=== PATIENT | male | born 1965 | race Caucasian/White ===

== ENCOUNTER 2017-06-07 12:34 | Emergency (ER) | payer OTHER ==
[~2017-06-07] VITALS: Ht 182.9 cm; Wt 102.0 kg
[2017-06-07 13:04] VITALS: BP 142/78; PULSE 97; RESP 18; TEMP 98.9; O2SAT 97
[2017-06-07 13:42] LABS: AUTOMATED NEUTROPHIL # 6.7 TH/MM3 (1.8-7.7); BASOPHIL # 0.1 TH/MM3 (0-0.2); BASOPHIL % 0.5 % (0.0-2.0); HEMATOCRIT 43.1 % (39.0-51.0); HEMOGLOBIN 14.8 GM/DL (13.0-17.0); LYMPH % 23.3 % (9.0-44.0); LYMPHOCYTE # 2.2 TH/MM3 (1.0-4.8); MEAN CELL VOLUME 87.8 FL (80.0-100.0); MEAN CORPUSCULAR HEMOGLOBIN 30.2 PG (27.0-34.0); MEAN CORPUSCULAR HGB CONC 34.4 % (32.0-36.0); MEAN PLATELET VOLUME 6.9 FL (7.0-11.0); MONO % 5.9 % (0.0-8.0); MONOCYTE # 0.6 TH/MM3 (0-0.9); NEUT % 70.3 % (16.0-70.0); PLATELET COUNT 335 TH/MM3 (150-450); RED BLOOD COUNT 4.91 MIL/MM3 (4.50-5.90); RED CELL DISTRIBUTION WIDTH 14.1 % (11.6-17.2); WHITE BLOOD COUNT 9.6 TH/MM3 (4.0-11.0)
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
[2017-06-07 13:51] LABS: PROTHROMBIN TIME - PATIENT 10.4 SEC (9.8-11.6)
[2017-06-07 14:01] LABS: ALBUMIN 4.3 GM/DL (3.4-5.0); ALT (GPT) 25 U/L (12-78); AST (GOT) 16 U/L (15-37); BICARBONATE 25.5 MEQ/L (21.0-32.0); BLOOD UREA NITROGEN 6 MG/DL (7-18); CALCIUM 9.3 MG/DL (8.5-10.1); CHLORIDE 106 MEQ/L (98-107); CREATININE 0.82 MG/DL (0.60-1.30); GLOMERULAR FILTRATION RATE 99 ML/MIN (>89); GLUCOSE,RANDOM 112 MG/DL (74-106); MAGNESIUM 2.1 MG/DL (1.5-2.5); SODIUM (NA) 140 MEQ/L (136-145)
[2017-06-07 14:11] LABS: ALKALINE PHOSPHATASE 55 U/L (45-117); TOTAL BILIRUBIN ADULT 0.5 MG/DL (0.2-1.0); TOTAL PROTEIN 7.5 GM/DL (6.4-8.2); TROPONIN I LESS THAN 0.02 NG/ML (0.02-0.05)
--- NOTE | 2017-06-07 14:11 | RADRPT ---
EXAM DATE/TIME: 06/07/2017 13:47 [facility] COMPARISON: No previous studies available for comparison. INDICATIONS : Chest Pain MEDICAL HISTORY : Myocardial infarction. SURGICAL HISTORY : Cardiac stents, Heart Cath ENCOUNTER: Initial ACUITY: 1 day PAIN SCORE: 0/10 LOCATION: chest FINDINGS: PA and lateral views of the chest demonstrate the lungs to be symmetrically aerated without evidence of mass, infiltrate or effusion. The cardiomediastinal contours are unremarkable. Osseous structure s are intact. CONCLUSION: No acute disease. Reddy Singh MD on June 07, 2017 at 14:08 Board Certified Radiologist. This report was verified electronically.
[2017-06-07] MEDS ORDERED: AMLO5TAB2 PO (18:17)
[2017-06-07] MEDS ORDERED: ATEN25TA PO (18:17)
[2017-06-07] MEDS ORDERED: CEPH500C PO (18:18)
[2017-06-07] MEDS ORDERED: VITA100018 PO (18:19)
[2017-06-07] MEDS ORDERED: CLOP75TA PO (18:20)
[2017-06-07] MEDS ORDERED: LACTTAB8 PO (18:20)
[2017-06-07] MEDS ORDERED: RANI150T PO (18:21)
[2017-06-07] MEDS ORDERED: SERT-129 PO (18:21)
[2017-06-07] MEDS ORDERED: LISI40TA PO (18:21)
[2017-06-07] MEDS ORDERED: NITR1SUB3 SL (18:23)
[2017-06-07] MEDS ORDERED: ASPI81TA23 PO (18:23)
[2017-06-07] MEDS ORDERED: ROSU1TAB10 PO (18:24)
[2017-06-07 18:40] VITALS: BP 177/96; PULSE 100; RESP 18; O2SAT 96
[2017-06-07] MEDS ORDERED: NITROGLYCERIN 0.4 MG SL 25 TABS/BTL SL ONE (19:15)
[2017-06-07] MEDS ORDERED: IBUPROFEN 600 MG TAB PO ONE (19:45)
[2017-06-07] MEDS ORDERED: SERTRALINE HCL 100 MG TAB PO ONE (20:00)
[2017-06-07] MEDS ORDERED: ATENOLOL 25 MG TAB PO ONE (20:00)
[2017-06-07] MEDS ORDERED: amLODIPine BESYLATE 5 MG TAB PO ONE (20:00)
[2017-06-07] MEDS ORDERED: LISINOPRIL 20 MG TAB PO SCH (20:00)
--- NOTE | 2017-06-07 23:58 | EKG ---
Date Performed: 06/07/2017 Time Performed: 12:58:30 PTAGE: 52 years EKG: Sinus rhythm NORMAL ECG WARNING: DATA QUALITY MAY AFFECT INTERPRETATION NO PREVIOUS TRACING DOCTOR: Mirian Blood Interpretating Date/Time 06/07/2017 23:56:23
[2017-06-08 02:17] VITALS: BP 149/86; PULSE 70; RESP 19; O2SAT 98
--- NOTE | 2017-06-08 09:35 | PD ---
Physical Exam Time Seen by Provider: 09:[address] Bowers has evaluated patient, lifted Coates act and cleared the patient for discharge. Data Data Last Documented VS Vital Signs Date Time Temp Pulse Resp B/P (MAP) Pulse Ox O2 Delivery O2 Flow Rate FiO2 06/08/17 02:17 70 19 149/86 (107) 98 Room Air 06/07/17 13:04 98.9 Orders Orders Electrocardiogram (06/07/17 13:00) Ckmb (Isoenzyme) Profile (06/07/17 13:00) Complete Blood Count With Diff (06/07/17 13:00) Comprehensive Metabolic Panel (06/07/17 13:00) Magnesium (Mg) (06/07/17 13:00) Prothrombin Time / Inr (Pt) (06/07/17 13:00) Act Partial Throm Time (Ptt) (06/07/17 13:00) Troponin I (06/07/17 13:00) Iv Access Insert/Monitor (06/07/17 13:00) Chest, Pa & Lat (06/07/17 13:00) Thyroid Stimulating Hormone (06/07/17 13:00) Drug Screen, Random Urine (06/07/17 13:00) Alcohol (Ethanol) (06/07/17 13:00) Psych Screen (06/07/17 13:00) CKMB (06/07/17 13:12) CKMB% (06/07/17 13:12) Diet Regular Basic (06/07/17 Dinner) Troponin I (06/07/17 18:35) Electrocardiogram (06/07/17 ) Nitroglycerin Sl (Nitrostat Sl) (06/07/17 19:15) Ibuprofen (Motrin) (06/07/17 19:45) Amlodipine (Norvasc) (06/07/17 20:00) Atenolol (Tenormin) (06/07/17 20:00) Lisinopril (Prinivil) (06/07/17 20:00) Sertraline (Zoloft) (06/07/17 20:00) Diet Regular Basic (06/08/17 Breakfast) Labs Laboratory Tests Test 06/07/17 13:12 06/07/17 15:40 06/07/17 19:26 White Blood Count 9.6 TH/MM3 Red Blood Count 4.91 MIL/MM3 Hemoglobin 14.8 GM/DL Hematocrit 43.1 % Mean Corpuscular Volume 87.8 FL Mean Corpuscular Hemoglobin 30.2 PG Mean Corpuscular Hemoglobin Concent 34.4 % Red Cell Distribution Width 14.1 % Platelet Count 335 TH/MM3 Mean Platelet Volume 6.9 FL Neutrophils (%) (Auto) 70.3 % Lymphocytes (%) (Auto) 23.3 % Monocytes (%) (Auto) 5.9 % Eosinophils (%) (Auto) 0.0 % Basophils (%) (Auto) 0.5 % Neutrophils # (Auto) 6.7 TH/MM3 Lymphocytes # (Auto) 2.2 TH/MM3 Monocytes # (Auto) 0.6 TH/MM3 Eosinophils # (Auto) 0.0 TH/MM3 Basophils # (Auto) 0.1 TH/MM3 CBC Comment DIFF FINAL Differential Comment Prothrombin Time 10.4 SEC Prothromb Time International Ratio 1.0 RATIO Activated Partial Thromboplast Time 25.7 SEC Blood Urea Nitrogen 6 MG/DL Creatinine 0.82 MG/DL Random Glucose 112 MG/DL Total Protein 7.5 GM/DL Albumin 4.3 GM/DL Calcium Level 9.3 MG/DL Magnesium Level 2.1 MG/DL Alkaline Phosphatase 55 U/L Aspartate Amino Transf (AST/SGOT) 16 U/L Alanine Aminotransferase (ALT/SGPT) 25 U/L Total Bilirubin 0.5 MG/DL Sodium Level 140 MEQ/L Potassium Level 3.7 MEQ/L Chloride Level 106 MEQ/L Carbon Dioxide Level 25.5 MEQ/L Anion Gap 9 MEQ/L Estimat Glomerular Filtration Rate 99 ML/MIN Total Creatine Kinase 200 U/L Creatine Kinase MB 1.9 NG/ML Troponin I LESS THAN 0.02 NG/ML LESS THAN 0.02 NG/ML Thyroid Stimulating Hormone 3rd Gen 0.561 uIU/ML Ethyl Alcohol Level LESS THAN 3 MG/DL Urine Opiates Screen NEG Urine Barbiturates Screen NEG Urine Amphetamines Screen NEG Urine Benzodiazepines Screen NEG Urine Cocaine Screen NEG Urine Cannabinoids Screen POS MDM Supervised Visit with [facility]: No Narrative Course Dr. Bowers has evaluated patient, lifted Coates act and cleared the patient for discharge. Patient contracts safety. Denies suicidal or homicidal ideations. Patient will be provided community resource packet to [facility] for follow-up. Has friends and family for support. Patient was medically cleared by alternate provider prior to psych screening. Patient has been evaluated by psychiatry and and is now cleared for discharge. Diagnosis Primary Impression: Adjustment disorder with disturbance of conduct Referrals: [facility] (Out patient) [facility] Primary Care Physician Psychiatrist J[facility]on [facility] Patient Instructions: General Instructions, Mood Disorders (ED) Departure Forms: Tests/Procedures Additional Instruction: Contract safety to your self and others Follow-up with psychiatry Follow-up with primary care provider Follow-up with Favian Cabral/[facility] Return to the emergency department immediately with worsening of symptoms Med/Other Pt SpecificInfo: No Change to Meds, No Meds Exist/No RX given Disposition: 01 DISCHARGE HOME Condition: Stable Laura Dumont Jun 08, 2017 09:35
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
--- NOTE | 2017-06-08 15:44 | EKG ---
Date Performed: 06/07/2017 Time Performed: 19:12:03 PTAGE: 52 years EKG: Sinus rhythm NORMAL ECG Since the previous tracing, no significant change noted NO PREVIOUS TRACING DOCTOR: Nikolas Feliz Interpretating Date/Time 06/08/2017 15:41:03
== END 2017-06-08 10:48 | disposition home or self-care (01) ==
LOC: NEPJ 12:34
DX: F43.24 Adjustment disorder with disturbance of conduct (principal); R07.9 Chest pain, unspecified; F12.90 Cannabis use, unspecified, uncomplicated; I10 Essential (primary) hypertension; I25.10 Atherosclerotic heart disease of native coronary artery without angina pectoris; Z72.0 Tobacco use; Z79.02 Long term (current) use of antithrombotics/antiplatelets; Z79.899 Other long term (current) drug therapy
CPT/HCPCS: 71046; 80053; 80307; 82550; 82552; 83735; 84443; 84484; 85025; 85610; 85730; 93005; 99285

== ENCOUNTER 2017-10-14 11:36 | Observation (INO) ==
[2017-10-14] MEDS ORDERED: Acetaminophen 325 MG Tablet PO ONE (12:48)
[2017-10-14] MEDS ORDERED: Morphine Sulfate Inj 2 MG/ML Vial IV.PUSH ONE (12:48)
--- NOTE | 2017-10-14 12:59 | ED ---
HPI General Chief Complaint: Chest Pain Stated Complaint: Chest Pains Time Seen by Provider: 10/14/17 12:36 Source: patient Mode of arrival: ambulatory Limitations: no limitations History of Present Illness HPI narrative: 52-year-old male complains of chest pain. Patient states that he had daily chest pain for the past 3 months. Patient states that the pain is pressure pain substernally left chest with radiation to left sided jaw, left axilla, left arm. Patient states that the pain has been intermittent. Patient states the pain relief with nitroglycerin sublingually. Patient states that the pain is not associate with exertion. Patient states that he has shortness of breath and generalized malaise and weakness with the chest pain. Patient has history of CAD status post PR, stent placement. Patient states that he been treated for 6 blockage from coronary artery disease with medication. Patient has history hypertension and hyperlipidemia. Patient denies history of diabetes. Patient is a non-smoker. Patient denies family history of heart disease. Patient is on Plavix and aspirin 81 mg daily. 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 [facility]. Patient states that just pain started again this morning around 8 and 9:00 this morning. Patient took 4 nitroglycerin with some relief of the chest pain. Patient however complained of headache and general malaise and weakness and shortness of breath. Patient also being treated for recurrence axilla abscess. Patient was on doxycycline until 5 days ago. Patient states that the infection got better and get worse again since then. MD complaint: chest pain Complete Quality Measures for STEMI Alert Patients STEMI Alert: No Onset (ago): hour(s) Duration: constant Onset: during rest Pain location: left chest Severity: moderate Severity scale (1-10): 8 Quality: aching and dull Pain radiation: LUE and jaw/teeth Relieving factors: nitroglycerin Exacerbating factors: nothing Associated symptoms: dyspnea Treatments prior to arrival chest pain: nitroglycerin Related Data Home Medications Medication Instructions Recorded Confirmed Probiotic 10/14/17 aspirin 81 mg PO DAILY 10/14/17 10/14/17 atenolol 20 mg 10/14/17 10/14/17 clopidogrel [Plavix] 75 mg PO DAILY 10/14/17 10/14/17 lisinopril 40 mg PO DAILY 10/14/17 10/14/17 potassium 10/14/17 ranitidine HCl [Zantac] 300 mg PO DAILY 10/14/17 10/14/17 rosuvastatin [Crestor] 40 mg PO DAILY 10/14/17 10/14/17 sertraline [Zoloft] 150 mg PO DAILY 10/14/17 10/14/17 Allergies Allergy/AdvReac Type Severity Reaction Status Date / Time iodine Allergy Severe Verified 09/11/17 11:20 Sulfa (Sulfonamide Allergy Severe Verified 09/11/17 11:20 Antibiotics) shellfish derived Allergy Unknown Verified 09/11/17 11:20 CT dye Allergy Unknown Uncoded 06/07/17 18:30 Review of Systems Except as stated in HPI: all other systems reviewed are negative PMFSH Social History Social History Second Hand Smoke Exposure: No Smoking Status: Former smoker Tobacco Type: Cigarettes How Often Do You Have a Drink Containing Alcohol: Never Recent Travel in [facility] [place] within the Last 8 Weeks: No Recent Out of Country Travel within the Last 8 Weeks: No Immunization History Tetanus Immunization: Unsure Exam Narrative Exam Narrative: GENERAL: Well-nourished, well-developed patient. SKIN: Focused skin assessment warm/dry. HEAD: Normocephalic. EYES: No scleral icterus. No injection or drainage. NECK: Supple, trachea midline. No JVD or lymphadenopathy. CARDIOVASCULAR: Regular rate and rhythm without murmurs, gallops, or rubs. RESPIRATORY: Breath sounds equal bilaterally. No accessory muscle use. GASTROINTESTINAL: Abdomen soft, non-tender, nondistended. MUSCULOSKELETAL: No cyanosis, or edema. BACK: Nontender without obvious deformity. No CVA tenderness. Neurologic exam normal. Course Initial Documented Vital Signs Temperature 98.2 F 10/14/17 11:52 Pulse Rate 95 H 10/14/17 11:52 Respiratory Rate 17 10/14/17 11:52 Blood Pressure 137/84 10/14/17 11:52 Pulse Oximetry 98 10/14/17 11:52 Last Documented Vital Signs Temperature 98.2 F 10/14/17 11:52 Pulse Rate 86 10/14/17 12:16 Respiratory Rate 17 10/14/17 12:16 Blood Pressure 162/92 H 10/14/17 12:16 Pulse Oximetry 100 10/14/17 12:16 Medical Decision Making MDM Narrative Medical decision making narrative: 52-year-old male with chest pain. History of CAD. Status post PR, stent placement. Morphine 2 mg IV. Zofran 4 mg IV. Tylenol 650 mg p.o. I spoke with her, dog, patient's waiter/waitress tourist class. Advised medical admission, n.p.o. after midnight. Continue with Plavix and aspirin. Differential Diagnosis Differential Diagnosis: Differential diagnosis including angina, PR, PE, pneumothorax. Lab Data Result diagrams: 10/14/17 12:40 10/14/17 12:40 Lab Results 10/14/17 10/14/17 10/14/17 Range/Units 12:40 12:40 12:40 WBC 14.7 H (4.0-11.0) th/mm3 RBC 5.18 (4.50-5.90) mil/mm3 Hgb 15.2 (13.0-17.0) gm/dL Hct 44.8 (39.0-51.0) % MCV 86.5 (80.0-100.0) fL MCH 29.4 (27.0-34.0) pg MCHC 34.0 (32.0-36.0) % RDW 13.6 (11.6-17.2) % Plt Count 306 (150-450) th/mm3 MPV 7.6 (7.0-11.0) fL Neut % (Auto) 75.6 H (16.0-70.0) % Lymph % (Auto) 16.8 (9.0-44.0) % [place] % (Auto) 6.9 (0.0-8.0) % Eos % (Auto) 0.2 (0.0-4.0) % Baso % (Auto) 0.5 (0.0-2.0) % Neut # (Auto) 11.1 H (1.8-7.7) th/mm3 Lymph # (Auto) 2.5 (1.0-4.8) th/mm3 [place] # (Auto) 1.0 H (0.0-0.9) th/mm3 Eos # (Auto) 0.0 (0.0-0.4) th/mm3 Baso # (Auto) 0.1 (0.0-0.2) th/mm3 WBC Differential . Differential Comment Auto diff final PT 10.1 (9.8-11.6) sec INR 1.0 Ratio APTT 27.4 (24.3-30.1) sec Sodium (136-145) meq/L Potassium (3.5-5.1) meq/L Chloride (98-107) meq/L Carbon Dioxide (21.0-32.0) meq/L Anion Gap (5-15) meq/L BUN (7-18) mg/dL Creatinine (0.60-1.30) mg/dL Estimated GFR (>89) mL/min Random Glucose (74-106) mg/dL Calcium (8.5-10.1) mg/dL Total Bilirubin (0.2-1.0) mg/dL AST (15-37) U/L ALT (12-78) U/L Alkaline Phosphatase (45-117) U/L Total Creatine Kinase (39-308) U/L CK-MB (CK-2) (0.5-3.6) ng/mL Troponin I Less than 0.02 L (0.02-0.05) ng/mL Total Protein (6.4-8.2) g/dL Albumin (3.4-5.0) g/dL 10/14/17 Range/Units 12:40 WBC (4.0-11.0) th/mm3 RBC (4.50-5.90) mil/mm3 Hgb (13.0-17.0) gm/dL Hct (39.0-51.0) % MCV (80.0-100.0) fL MCH (27.0-34.0) pg MCHC (32.0-36.0) % RDW (11.6-17.2) % Plt Count (150-450) th/mm3 MPV (7.0-11.0) fL Neut % (Auto) (16.0-70.0) % Lymph % (Auto) (9.0-44.0) % [place] % (Auto) (0.0-8.0) % Eos % (Auto) (0.0-4.0) % Baso % (Auto) (0.0-2.0) % Neut # (Auto) (1.8-7.7) th/mm3 Lymph # (Auto) (1.0-4.8) th/mm3 [place] # (Auto) (0.0-0.9) th/mm3 Eos # (Auto) (0.0-0.4) th/mm3 Baso # (Auto) (0.0-0.2) th/mm3 WBC Differential Differential Comment PT (9.8-11.6) sec INR Ratio APTT (24.3-30.1) sec Sodium 137 (136-145) meq/L Potassium 3.6 (3.5-5.1) meq/L Chloride 104 (98-107) meq/L Carbon Dioxide 22.9 (21.0-32.0) meq/L Anion Gap 10 (5-15) meq/L BUN 9 (7-18) mg/dL Creatinine 0.80 (0.60-1.30) mg/dL Estimated GFR Greater than 89 (>89) mL/min Random Glucose 94 (74-106) mg/dL Calcium 9.3 (8.5-10.1) mg/dL Total Bilirubin 0.7 (0.2-1.0) mg/dL AST 16 (15-37) U/L ALT 24 (12-78) U/L Alkaline Phosphatase 78 (45-117) U/L Total Creatine Kinase 113 (39-308) U/L CK-MB (CK-2) 1.1 (0.5-3.6) ng/mL Troponin I (0.02-0.05) ng/mL Total Protein 7.9 (6.4-8.2) g/dL Albumin 4.3 (3.4-5.0) g/dL Imaging Data Attestation: I personally reviewed and interpreted this imaging study as follows : Radiologist's impression: Chest X-Ray 10/14/17 12:51 CONCLUSION: No acute intrathoracic disease. Stable examination of the chest. Discharge Plan Discharge Disposition Patient Disposition: 30 Still Patient Discharge Details Diagnosis: Chest pain, Folliculitis Physicians Team ED Provider: Perico Ashford Primary Care Provider: [facility] Other Providers: Kathryn Miranda Rxs /Orders / Referrals /Forms Prescriptions: No Action sertraline [Zoloft] 100 mg Tablet 150 mg PO DAILY RF: 0 atenolol 25 mg Tablet 20 mg RF: 0 clopidogrel [Plavix] 75 mg Tablet 75 mg PO DAILY RF: 0 ranitidine HCl [Zantac] 150 mg Tablet 300 mg PO DAILY RF: 0 aspirin 81 mg Tablet,Chewable 81 mg PO DAILY RF: 0 lisinopril 40 mg Tablet 40 mg PO DAILY RF: 0 rosuvastatin [Crestor] 40 mg Tablet 40 mg PO DAILY RF: 0 Probiotic RF: 0 potassium RF: 0 Discharge Instructions Patient Printed Instructions: Chest Pain (ED) Discharge Interventions Interventions: Vital Signs Last Done: 10/14/17 12:16 Status ED Status: With Doctor
[2017-10-14 13:14] LABS: Baso # (Auto) 0.1 th/mm3 (0.0-0.2); Baso % (Auto) 0.5 % (0.0-2.0); Eos % (Auto) 0.2 % (0.0-4.0); Hematocrit 44.8 % (39.0-51.0); Hemoglobin 15.2 gm/dL (13.0-17.0); Lymph # (Auto) 2.5 th/mm3 (1.0-4.8); Lymph % (Auto) 16.8 % (9.0-44.0); Mean Corpuscular Hemoglobin 29.4 pg (27.0-34.0); Mean Corpuscular Volume 86.5 fL (80.0-100.0); Mean Platelet Volume 7.6 fL (7.0-11.0); Mono % (Auto) 6.9 % (0.0-8.0); Neut # (Auto) 11.1 th/mm3 (1.8-7.7); Neut % (Auto) 75.6 % (16.0-70.0); Platelet Count 306 th/mm3 (150-450); Red Blood Count 5.18 mil/mm3 (4.50-5.90); Red Cell Distribution Width 13.6 % (11.6-17.2); White Blood Count 14.7 th/mm3 (4.0-11.0)
[2017-10-14 13:25] LABS: Activated Partial Thrombo Time 27.4 sec (24.3-30.1); Prothrombin Time 10.1 sec (9.8-11.6)
[2017-10-14 13:36] LABS: Albumin 4.3 g/dL (3.4-5.0); Anion Gap 10 meq/L (5-15); Aspartate Aminotransferase 16 U/L (15-37); Blood Urea Nitrogen 9 mg/dL (7-18); Calcium 9.3 mg/dL (8.5-10.1); Carbon Dioxide 22.9 meq/L (21.0-32.0); Chloride 104 meq/L (98-107); Glomerular Filtration Rate Greater Than 89 mL/min (>89); Glucose,Random 94 mg/dL (74-106); Potassium 3.6 meq/L (3.5-5.1); Sodium 137 meq/L (136-145)
[2017-10-14 13:40] LABS: Alanine Aminotransferase 24 U/L (12-78); Alkaline Phosphatase 78 U/L (45-117); Creatine Kinase 113 U/L (39-308); Total Protein 7.9 g/dL (6.4-8.2)
--- NOTE | 2017-10-14 13:43 | XR ---
EXAM DATE: 10/14/2017 1:06 PM EDT AGE/SEX: 52 years / Male INDICATIONS: Chest pain. CLINICAL DATA: This is the patient's initial encounter. Patient reports that signs and symptoms have been present for 1 day and indicates a pain score of 9/10. MEDICAL/SURGICAL HISTORY: . hx of TB, 2 heart attacks, COPD . 4 coronary artery stents COMPARISON: [facility], CHEST PA & LAT, 06/07/2017. . FINDINGS: A single AP view of the chest demonstrates the lungs to be symmetrically aerated without evidence of mass, infiltrate or effusion. The cardiomediastinal contours are unremarkable. Osseous structures a re intact. CONCLUSION: No acute intrathoracic disease. Stable examination of the chest. Electronically signed by: Wilbur Gee MD 10/14/2017 1:41 PM EDT
[2017-10-14 13:57] LABS: Creatine Kinase MB 1.1 ng/mL (0.5-3.6)
[2017-10-14] MEDS ORDERED: Bisacodyl 10 MG Supp RECTAL PRN (14:45)
[2017-10-14] MEDS ORDERED: Acetaminophen 325 MG Tablet PO PRN (14:45)
--- NOTE | 2017-10-14 18:03 | P.HP ---
History of Present Illness Service: [facility] Primary Care Physician: [facility] Chief Complaint: Chest Pain History of Present Illness: Patient is a 52-year-old male with primary medical history of HTN, HLD, depression, CAD with 4 stents who came into the hospital for complaints of chest pain. Patient states the chest pain has been ongoing since this morning associated with slight nausea, no vomiting, no diaphoresis. Patient states that he woke up with a chest pain this morning. Have chest pain midsternal area radiating towards his neck towards his left jaw all the way radiating to the arms going down from shoulders. States he got some relief with morphine and nitro. States that usually work if he gets a Nitropaste. Patient continues to have pain rated 8/10, radiating towards the neck jaw arm. He denies any shortness of breath or dyspnea, cough, headaches, dizziness, palpitations Patient also reports bilateral armpit infection, states it is MRSA and he was started on clindamycin but he was taken off of it and placed on doxycycline. Discussed with patient will continue with the doxycycline. Patient also complains of burning sensation when he urinates. Reports urgency, frequency. Started yesterday. States he does not have any hematuria, fevers, chills, diarrhea. WBC 14.7, chemistry reviewed within normal. First troponin negative, BNP 10. Chest x-ray showed no acute intrathoracic disease. Stable examination of the chest. - Diagnosis (1) Chest pain Review of Systems All other systems reviewed negative except as stated in HPI PMFSH - History History Provided By: Patient - Medical History Medical History: Medical History (Last Updated 10/14/17 @ 17:47 by HANDY Burroughs) CAD (coronary artery disease) Depression HLD (hyperlipidemia) HTN (hypertension) Hidradenitis suppurativa - Surgical History Surgical History: Surgical History (Last Updated 10/14/17 @ 17:48 by HANDY Burroughs) S/P coronary artery stent placement - Family History Family History: Family History (Last Updated 10/14/17 @ 17:48 by HANDY Burroughs) Father Stroke Mother Diabetes History of permanent cardiac pacemaker placement - Tobacco History Second Hand Smoke Exposure: No Tobacco Use In Past 30 Days: No Smoking Status: Former smoker Tobacco Type: Cigarettes - Alcohol History How Often Do You Have a Drink Containing Alcohol: Never - Substance Use Type Marijuana Reason for Use: Calm Down - Travel History History of Recent Travel: No Recent Travel in the [place] Within the Last 8 Weeks: No Recent Travel Out of the Country Within the Last 8 Weeks: No - Immunization History Tetanus Immunization: Unsure Medications and Allergies Active Medications: Active Medications Acetaminophen (Tylenol) 650 mg PO Q4H PRN PRN Reason: Headache, fever, pain 1-5 Al Hydroxide/Mg Hydroxide (Milk Of Magnesia Liq) 30 ml PO Q12H PRN PRN Reason: Mild Constipation Aspirin (Aspirin Chew) 81 mg PO DAILY [facility] Atorvastatin Calcium (Lipitor) 80 mg PO DAILY [facility] Bisacodyl (Dulcolax Supp) 10 mg RECTAL DAILY PRN PRN Reason: SEVERE CONSITIPATION Clopidogrel Bisulfate (Plavix) 75 mg PO DAILY [facility] Doxycycline Hyclate (Vibramycin) 100 mg PO Q12HR [facility] Famotidine (Pepcid) 20 mg PO BID [facility] Lactulose (Lactulose Liq) 30 ml PO DAILY PRN PRN Reason: SEVERE CONSITIPATION Lisinopril (Prinivil) 40 mg PO DAILY [facility] Sennosides (Senokot) 17.2 mg PO Q12H PRN PRN Reason: Moderate Constipation Sertraline HCl (Zoloft) 150 mg PO DAILY [facility] Allergies Allergy/AdvReac Type Severity Reaction Status Date / Time iodine Allergy Severe Verified 09/11/17 11:20 Sulfa (Sulfonamide Allergy Severe Verified 09/11/17 11:20 Antibiotics) shellfish derived Allergy Unknown Verified 09/11/17 11:20 CT dye Allergy Unknown Uncoded 06/07/17 18:30 Home Medications Medication Instructions Recorded Confirmed Type Probiotic 10/14/17 History aspirin 81 mg PO DAILY 10/14/17 10/14/17 History atenolol 20 mg 10/14/17 10/14/17 History clopidogrel [Plavix] 75 mg PO DAILY 10/14/17 10/14/17 History lisinopril 40 mg PO DAILY 10/14/17 10/14/17 History potassium 10/14/17 History ranitidine HCl [Zantac] 300 mg PO DAILY 10/14/17 10/14/17 History rosuvastatin [Crestor] 40 mg PO DAILY 10/14/17 10/14/17 History sertraline [Zoloft] 150 mg PO DAILY 10/14/17 10/14/17 History Exam Vital signs: Vital Signs 10/14/17 11:52 10/14/17 12:11 10/14/17 12:16 Temperature 98.2 F Pulse Rate 95 H 85 86 Respiratory Rate 17 18 17 Blood Pressure 137/84 160/92 H 162/92 H Pulse Oximetry 98 98 100 10/14/17 12:50 10/14/17 15:53 10/14/17 15:54 Temperature Pulse Rate 86 86 Respiratory Rate 17 17 Blood Pressure 135/85 135/85 Pulse Oximetry 100 100 100 Intake & Output 10/13/17 10/14/17 10/14/17 18:59 06:59 18:59 Weight 104.326 kg Narrative: GENERAL: This is a well-nourished, well-developed patient, in no apparent distress. SKIN: Warm and dry. Bilateral axilla with hidradenitis suppurativa stage I HEENT: Normocephalic. Pupils equal round and reactive. Nose without bleeding. Airway patent. NECK: Trachea midline. Supple. CARDIOVASCULAR: Regular rate and rhythm without murmurs, gallops, or rubs. RESPIRATORY: Clear to auscultation. Breath sounds equal bilaterally. No wheezes , rales, or rhonchi. GASTROINTESTINAL: Abdomen soft, non-tender, nondistended. Bowel Sounds normoactive x4. MUSCULOSKELETAL: Extremities without clubbing, cyanosis, or edema. NEUROLOGICAL: Awake and alert. Oriented to time, place, person. No focal neuro deficit. Moves all extremities. Normal speech. Results - Labs CBC & Chem 7: 10/14/17 12:40 10/14/17 12:40 Labs: Laboratory Results - last 24 hr 10/14/17 10/14/17 10/14/17 12:40 12:40 12:40 WBC 14.7 H RBC 5.18 Hgb 15.2 Hct 44.8 MCV 86.5 MCH 29.4 MCHC 34.0 RDW 13.6 Plt Count 306 MPV 7.6 Neut % (Auto) 75.6 H Lymph % (Auto) 16.8 [place] % (Auto) 6.9 Eos % (Auto) 0.2 Baso % (Auto) 0.5 Neut # (Auto) 11.1 H Lymph # (Auto) 2.5 [place] # (Auto) 1.0 H Eos # (Auto) 0.0 Baso # (Auto) 0.1 WBC Differential . Differential Comment Auto diff final PT 10.1 INR 1.0 APTT 27.4 Sodium Potassium Chloride Carbon Dioxide Anion Gap BUN Creatinine Estimated GFR Random Glucose Calcium Total Bilirubin AST ALT Alkaline Phosphatase Total Creatine Kinase CK-MB (CK-2) Troponin I Less than 0.02 L B-Natriuretic Peptide Total Protein Albumin 10/14/17 10/14/17 12:40 12:40 WBC RBC Hgb Hct MCV MCH MCHC RDW Plt Count MPV Neut % (Auto) Lymph % (Auto) [place] % (Auto) Eos % (Auto) Baso % (Auto) Neut # (Auto) Lymph # (Auto) [place] # (Auto) Eos # (Auto) Baso # (Auto) WBC Differential Differential Comment PT INR APTT Sodium 137 Potassium 3.6 Chloride 104 Carbon Dioxide 22.9 Anion Gap 10 BUN 9 Creatinine 0.80 Estimated GFR Greater than 89 Random Glucose 94 Calcium 9.3 Total Bilirubin 0.7 AST 16 ALT 24 Alkaline Phosphatase 78 Total Creatine Kinase 113 CK-MB (CK-2) 1.1 Troponin I B-Natriuretic Peptide 10 Total Protein 7.9 Albumin 4.3 - Imaging Impressions Chest X-Ray 10/14/17 12:51 CONCLUSION: No acute intrathoracic disease. Stable examination of the chest. Caprini VTE Risk Assessment Caprini VTE Risk Assessment: Moderate/High Risk (score >= 2) Caprini Risk Assessment Model: Point Value = 1 Point Value = 2 Point Value = 3 Point Value = 5 Age 41-60 Minor surgery BMI > 25 kg/m2 Swollen legs Varicose veins or History of unexplained or recurrent spontaneous Oral contraceptives or hormone replacement Sepsis (< 1 month) Serious lung disease, including pneumonia (< 1 month) Abnormal pulmonary function Acute myocardial infarction Congestive heart failure (< 1 month) History of inflammatory bowel disease Medical patient at bed rest Age 61-74 Arthroscopic surgery Major open surgery (> 45 min) Laparoscopic surgery (> 45 min) Malignancy Confined to bed (> 72 hours) Immobilizing plaster cast Central venous access Age >= 75 History of VTE Family history of VTE Factor V Leiden Prothrombin [id number] Lupus anticoagulant Anticardiolipin antibodies Elevated serum homocysteine Heparin-induced thrombocytopenia Other congenital or acquired thrombophilia Stroke (< 1 month) Elective arthroplasty Hip, pelvis, or leg fracture Acute spinal cord injury (< 1 month) Prophylaxis Regimen: Total Risk Factor Score Risk Level Prophylaxis Regimen 0-1 Low Early ambulation 2 Moderate Order ONE of the following: *Sequential Compression Device (SCD) *Heparin 5000 units SQ BID 3-4 Higher Order ONE of the following medications: *Heparin 5000 units SQ TID *Enoxaparin/Lovenox 40 mg SQ daily (WT < 150 kg, CrCl > 30 mL/min) *Enoxaparin/Lovenox 30 mg SQ daily (WT < 150 kg, CrCl > 10-29 mL/min) *Enoxaparin/Lovenox 30 mg SQ BID (WT < 150 kg, CrCl > 30 mL/min) AND/OR *Sequential Compression Device (SCD) 5 or more Highest Order ONE of the following medications: *Heparin 5000 units SQ TID (Preferred with Epidurals) *Enoxaparin/Lovenox 40 mg SQ daily (WT < 150 kg, CrCl > 30 mL/min) *Enoxaparin/Lovenox 30 mg SQ daily (WT < 150 kg, CrCl > 10-29 mL/min) *Enoxaparin/Lovenox 30 mg SQ BID (WT < 150 kg, CrCl > 30 mL/min) AND *Sequential Compression Device (SCD) Assessment and Plan - Assessment (1) Chest pain Code(s): R07.9 - Chest pain, unspecified Status: Acute - Plan Patient is a 52-year-old male with primary medical history of HTN, HLD, depression, CAD with 4 stents who came into the hospital for complaints of chest pain Chest pain rule out ACS -Serial troponin, serial EKG -Dr. Miranda consulted plan for cardiac cath tomorrow -No heparin drip for now, patient was given Plavix -Nitro paste -Morphine as needed -Place patient on telemetry -Chest x-ray negative, initial EKG reviewed sinus rhythm, negative initial troponin Hydradenitis suppurativa -Start doxycycline twice daily -Continue to monitor Complaints of urinary symptoms -Check UA HTN HLD CAD, history of stent placement -Continue home medications -Monitor BP trend DVT prop SCDs Code Status: Full code Discussed Condition With: Patient, nursing Discharge Planning: Plan to DC home when clinically improved. Plan for procedure tomorrow with cardiology. (1) Chest pain Qualifiers: Chest pain type: unspecified Qualified Code(s): R07.9 - Chest pain, unspecified
[2017-10-14] MEDS: Enoxaparin Inj 40 MG/0.4 ML Syringe SQ SCH ×2 (18:38→18:44)
[2017-10-14] MEDS: Famotidine 20 MG Tablet PO SCH (21:30)
[2017-10-15 00:25] LABS: Bacteria,Urine Rare /hpf; Bilirubin,Urine Negative (Negative); Clarity,Urine Clear (Clear); Color,Urine Straw (Yellw/Straw); Glucose,Urine (UA) Negative (Negative); Leukocyte Esterase,Urine Large (Negative); Nitrite,Urine Negative (Negative); Specific Gravity,Urine 1.004 (1.002-1.035); Squamous Epithelial Cell,Urine <1 /hpf (0-5)
[2017-10-15] MEDS: Morphine Inj 4 MG/ML Vial IV.PUSH PRN ×3 (02:58→13:25)
[2017-10-15 07:14] LABS: Baso # (Auto) 0.1 th/mm3 (0.0-0.2); Baso % (Auto) 0.5 % (0.0-2.0); Eos # (Auto) 0.1 th/mm3 (0.0-0.4); Eos % (Auto) 0.5 % (0.0-4.0); Hematocrit 43.5 % (39.0-51.0); Hemoglobin 14.5 gm/dL (13.0-17.0); Lymph # (Auto) 2.4 th/mm3 (1.0-4.8); Lymph % (Auto) 15.2 % (9.0-44.0); Mean Corpuscular HGB Conc 33.3 % (32.0-36.0); Mean Corpuscular Hemoglobin 28.7 pg (27.0-34.0); Mean Corpuscular Volume 86.3 fL (80.0-100.0); Mean Platelet Volume 7.3 fL (7.0-11.0); Mono # (Auto) 1.2 th/mm3 (0.0-0.9); Mono % (Auto) 7.9 % (0.0-8.0); Neut # (Auto) 11.8 th/mm3 (1.8-7.7); Neut % (Auto) 75.9 % (16.0-70.0); Platelet Count 287 th/mm3 (150-450); Red Blood Count 5.04 mil/mm3 (4.50-5.90); Red Cell Distribution Width 13.6 % (11.6-17.2); White Blood Count 15.6 th/mm3 (4.0-11.0)
[2017-10-15 07:36] LABS: Alanine Aminotransferase 23 U/L (12-78); Anion Gap 8 meq/L (5-15); Aspartate Aminotransferase 12 U/L (15-37); Blood Urea Nitrogen 12 mg/dL (7-18); Calcium 9.2 mg/dL (8.5-10.1); Carbon Dioxide 25.9 meq/L (21.0-32.0); Chloride 106 meq/L (98-107); Glomerular Filtration Rate Greater Than 89 mL/min (>89); Glucose,Random 110 mg/dL (74-106); Sodium 140 meq/L (136-145)
[2017-10-15 07:38] LABS: Alkaline Phosphatase 75 U/L (45-117); Total Protein 7.5 g/dL (6.4-8.2)
--- NOTE | 2017-10-15 08:39 | ECG ---
Date Performed: 10/14/2017 Time Performed: 21:35:18 PTAGE: 52 years EKG: Sinus rhythm Lead(s) unsuitable for analysis: V3 Normal ECG based on available leads PREVIOUS TRACING : 10/14/2017 15.45 No significant change from previous tracing noted. DOCTOR: Miguel Ángel Berman Interpretating Date/Time 10/15/2017 08:38:51
--- NOTE | 2017-10-15 08:50 | ECG ---
Date Performed: 10/14/2017 Time Performed: 15:45:02 PTAGE: 52 years EKG: Sinus rhythm NORMAL ECG PREVIOUS TRACING : 10/14/2017 12.13 No significant change from previous tracing noted. DOCTOR: Miguel Ángel Berman Interpretating Date/Time 10/15/2017 08:49:08
--- NOTE | 2017-10-15 09:15 | ECG ---
Date Performed: 10/14/2017 Time Performed: 12:13:38 PTAGE: 52 years EKG: Sinus rhythm NORMAL ECG PREVIOUS TRACING : 06/07/2017 19.12 No significant change from previous tracing noted. DOCTOR: Miguel Ángel Berman Interpretating Date/Time 10/15/2017 09:14:32
--- NOTE | 2017-10-15 09:24 | P.CONCA ---
<Kaitlin,June - Last Filed: 10/15/17 10:12> History of Present Illness Service: Cardiology Consult date: 10/15/17 Reason for Consult: Chest pain Primary Care Provider: [facility] Family Provider: [facility] Chief Complaint: Chest Pain History of Present Illness: Pleasant 52 year old male with a significant past medical history of ASHD is a former patient of Dr. Curiel and Dr. Mauriceengers most recent heart cath was March 2016. 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 He reports he has been having chest pain off and on for the past 3 months, however yesterday morning the pain started again was worse patient took a total of 4 nitroglycerin which relieved the pain slightly. He reports he had a recent skin infection, abscess under axilla and was treated with doxycycline, last does was approx 5 days ago. He thinks infection has returned. He also reports having burning with urination, UA +, culture pending. Will order blood cultures. Patient denies having any chest pain overnight. He admits to a couple sharp episodes of chest pain this morning lasting 1-2 seconds. Currently has nitro paste in place. Patient reports he is concerned that his skin infection is back. Discussed risk of cardiac catheterization in detail. Due to current skin infection and urinary tract infection will hold off on heart catheterization until infection has cleared. Review of Systems Constitutional: Reports fatigue Cardiovascular: Reports chest pain Genitourinary: Reports painful urination Skin/Breast: Reports lesions, Reports new lesions, Reports redness Comments: small skin lesion noted under left axilla PMFSH - History History Provided By: Patient - Medical History Medical History: Medical History (Last Updated 10/15/17 @ 09:10 by Katt Kaitlin) Hidradenitis suppurativa (Acute) CAD (coronary artery disease) (Acute) HTN (hypertension) (Acute) Depression HLD (hyperlipidemia) UTI (urinary tract infection) - Surgical History Surgical History: Surgical History (Last Updated 10/14/17 @ 17:48 by HANDY Burroughs) S/P coronary artery stent placement - Family History Family History: Family History (Last Updated 10/14/17 @ 17:48 by HANDY Burroughs) Father Stroke Mother Diabetes History of permanent cardiac pacemaker placement - Tobacco History Second Hand Smoke Exposure: No Tobacco Use In Past 30 Days: No Smoking Status: Former smoker Tobacco Type: Cigarettes - Alcohol History How Often Do You Have a Drink Containing Alcohol: Never - Substance Use Type Marijuana Reason for Use: Calm Down - Travel History History of Recent Travel: No Recent Travel in the [place] Within the Last 8 Weeks: No Recent Travel Out of the Country Within the Last 8 Weeks: No - Immunization History Tetanus Immunization: Unsure Medications and Allergies Allergies Allergy/AdvReac Type Severity Reaction Status Date / Time iodine Allergy Severe Verified 09/11/17 11:20 Sulfa (Sulfonamide Allergy Severe Verified 09/11/17 11:20 Antibiotics) shellfish derived Allergy Unknown Verified 09/11/17 11:20 CT dye Allergy Unknown Uncoded 06/07/17 18:30 Home Medications Medication Instructions Recorded Confirmed Type Probiotic 10/14/17 History aspirin 81 mg PO DAILY 10/14/17 10/14/17 History atenolol 20 mg 10/14/17 10/14/17 History clopidogrel [Plavix] 75 mg PO DAILY 10/14/17 10/14/17 History lisinopril 40 mg PO DAILY 10/14/17 10/14/17 History potassium 10/14/17 History ranitidine HCl [Zantac] 300 mg PO DAILY 10/14/17 10/14/17 History rosuvastatin [Crestor] 40 mg PO DAILY 10/14/17 10/14/17 History sertraline [Zoloft] 150 mg PO DAILY 10/14/17 10/14/17 History Active Medications: Active Medications Acetaminophen (Tylenol) 650 mg PO Q4H PRN PRN Reason: Headache, fever, pain 1-5 Last Admin: 10/14/17 20:23 Dose: 650 mg Al Hydroxide/Mg Hydroxide (Milk Of Magnted Liq) 30 ml PO Q12H PRN PRN Reason: Mild Constipation Aspirin (Aspirin Chew) 81 mg PO DAILY [facility] Atenolol (Tenormin) 25 mg PO DAILY [facility] Atorvastatin Calcium (Lipitor) 80 mg PO DAILY [facility] Bisacodyl (Dulcolax Supp) 10 mg RECTAL DAILY PRN PRN Reason: SEVERE CONSITIPATION Clopidogrel Bisulfate (Plavix) 75 mg PO DAILY [facility] Doxycycline Hyclate (Vibramycin) 100 mg PO Q12HR [facility] Last Admin: 10/15/17 02:58 Dose: 100 mg Enoxaparin Sodium (Lovenox Inj) 40 mg SQ DAILY [facility] Last Admin: 10/14/17 18:44 Dose: Not Given Famotidine (Pepcid) 20 mg PO BID [facility] Last Admin: 10/14/17 21:30 Dose: 20 mg Lactulose (Lactulose Liq) 30 ml PO DAILY PRN PRN Reason: SEVERE CONSITIPATION Lisinopril (Prinivil) 40 mg PO DAILY [facility] Morphine Sulfate (Morphine Inj) 2 mg IV.PUSH Q3H PRN PRN Reason: PAIN SCALE 1 TO 10 Last Admin: 10/15/17 02:58 Dose: 2 mg Nitroglycerin (Nitro-Bid 2% Oint) 1 inch TOPICAL Q6HR [facility] Last Admin: 10/14/17 18:38 Dose: 1 inch Ondansetron HCl (Zofran Inj) 4 mg IV.PUSH Q6H PRN PRN Reason: NAUSEA Last Admin: 10/14/17 22:56 Dose: 4 mg Sennosides (Senokot) 17.2 mg PO Q12H PRN PRN Reason: Moderate Constipation Sertraline HCl (Zoloft) 150 mg PO DAILY [facility] Exam Vital signs: Vital Signs 10/14/17 11:52 10/14/17 12:11 10/14/17 12:16 Temperature 98.2 F Pulse Rate 95 H 85 86 Respiratory Rate 17 18 17 Blood Pressure 137/84 160/92 H 162/92 H Pulse Oximetry 98 98 100 10/14/17 12:50 10/14/17 15:53 10/14/17 15:54 Temperature Pulse Rate 86 86 Respiratory Rate 17 17 Blood Pressure 135/85 135/85 Pulse Oximetry 100 100 100 10/14/17 18:45 10/14/17 20:25 Temperature Pulse Rate 82 95 H Respiratory Rate 17 20 Blood Pressure 138/87 146/81 H Pulse Oximetry 97 Intake & Output 10/14/17 10/15/17 10/15/17 18:59 06:59 18:59 Weight 104.326 kg 92.7 kg - Constitutional no acute distress - Routine HEENT Exam Head: Present: normocephalic, atraumatic Eye: Present: normal accommodation ENT: Present: mucous membranes moist - Routine Neck Exam Present: supple - Routine Chest/Breast/Axilla Exam Axillae: Present: rashes Comments: small skin lesion under left axilla. - Routine Respiratory Exam Present: CTA bilaterally - Routine Cardiovascular Exam Present: RRR - Routine Extremities Exam Present: full ROM Comments: no edema - Routine Skin Exam Present: lesions - Routine Neurological Exam Present: alert, oriented X3 Results 10/15/17 06:28 10/15/17 06:28 Cardiac Enzymes 10/14/17 10/14/17 10/14/17 Range/Units 12:40 12:40 12:40 AST 16 (15-37) U/L CK-MB (CK-2) 1.1 (0.5-3.6) ng/mL Troponin I Less than 0.02 L (0.02-0.05) ng/mL B-Natriuretic Peptide 10 (0-100) pg/mL 10/14/17 10/14/17 10/15/17 Range/Units 15:45 23:47 06:28 AST 12 L (15-37) U/L CK-MB (CK-2) (0.5-3.6) ng/mL Troponin I Less than 0.02 L Less than 0.02 L (0.02-0.05) ng/mL B-Natriuretic Peptide (0-100) pg/mL Coagulation 10/14/17 10/14/17 Range/Units 12:40 12:40 PT 10.1 (9.8-11.6) sec APTT 27.4 (24.3-30.1) sec B-Natriuretic Peptide 10 (0-100) pg/mL CBC 10/14/17 10/15/17 Range/Units 12:40 06:28 WBC 14.7 H 15.6 H (4.0-11.0) th/mm3 RBC 5.18 5.04 (4.50-5.90) mil/mm3 Hgb 15.2 14.5 (13.0-17.0) gm/dL Hct 44.8 43.5 (39.0-51.0) % Plt Count 306 287 (150-450) th/mm3 Neut # (Auto) 11.1 H 11.8 H (1.8-7.7) th/mm3 Lymph # (Auto) 2.5 2.4 (1.0-4.8) th/mm3 [place] # (Auto) 1.0 H 1.2 H (0.0-0.9) th/mm3 Eos # (Auto) 0.0 0.1 (0.0-0.4) th/mm3 Baso # (Auto) 0.1 0.1 (0.0-0.2) th/mm3 Comprehensive Metabolic Panel 10/14/17 10/15/17 Range/Units 12:40 06:28 Sodium 137 140 (136-145) meq/L Potassium 3.6 4.0 (3.5-5.1) meq/L Chloride 104 106 (98-107) meq/L Carbon Dioxide 22.9 25.9 (21.0-32.0) meq/L BUN 9 12 (7-18) mg/dL Creatinine 0.80 0.85 (0.60-1.30) mg/dL Calcium 9.3 9.2 (8.5-10.1) mg/dL AST 16 12 L (15-37) U/L ALT 24 23 (12-78) U/L Alkaline Phosphatase 78 75 (45-117) U/L Total Protein 7.9 7.5 (6.4-8.2) g/dL Albumin 4.3 4.0 (3.4-5.0) g/dL Intake and Output 10/14/17 10/15/17 10/15/17 22:59 06:59 14:59 Other: Weight 92.7 kg - Imaging and Cardiology EKG results: report reviewed - EKG Interpretation EKG: sinus rhythm EKG interpretations - Dysrhythmias Sinus rhythms and dysrhythmias: sinus rhythm Assessment and Plan - Plan Chest pain HTN Skin infection UTI -History of ASHD with multiple stents placed in the past. Denies any chest pain at this time. Did have 2 episodes of sharp CP earlier this AM lasting 1-2 seconds. He denies any nausea or SOB. All option discussed in detail. WBC elevated, abscess under left axilla and +UA, blood cultures pending. All risks discussed in detail. Will clear up infection first and consider outpatient stress test verses cardiac cath. Aspirin, plavix, BB and statin resumed. (pt also has severe contrast/shellfish allergy will need pre medicated). -Will resume lisinopril and atenolol. -Pt was hospitalized in July for right axilla cellulitis. Now has small skin lesion under left axilla. WBC elevated. Currently receiving doxycycline for skin infection -UA culture pending, Leukocytosis. Blood cultures ordered. Will consult infectious disease. The patient was seen and evaluated by Dr. Miranda who completed [id number] encounter and physical exam and participated in care, management and decision making. Code Status: Full code Discussed Condition With: Nurse <Kathryn Miranda - Last Filed: 10/15/17 14:55> History of Present Illness [facility] Family Provider: [facility] - Medical History Medical History: Medical History (Last Updated 10/15/17 @ 09:10 by Katt Kaitlin) Hidradenitis suppurativa (Acute) CAD (coronary artery disease) (Acute) HTN (hypertension) (Acute) Depression HLD (hyperlipidemia) UTI (urinary tract infection) - Surgical History Surgical History: Surgical History (Last Updated 10/14/17 @ 17:48 by HANDY Burroughs) S/P coronary artery stent placement - Family History Family History: Family History (Last Updated 10/14/17 @ 17:48 by HANDY Burroughs) Father Stroke Mother Diabetes History of permanent cardiac pacemaker placement Medications and Allergies Active Medications: Active Medications Acetaminophen (Tylenol) 650 mg PO Q4H PRN PRN Reason: Headache, fever, pain 1-5 Last Admin: 10/14/17 20:23 Dose: 650 mg Al Hydroxide/Mg Hydroxide (Milk Of [place]) 30 ml PO Q12H PRN PRN Reason: Mild Constipation Aspirin (Aspirin Chew) 81 mg PO DAILY [facility] Last Admin: 10/15/17 09:33 Dose: 81 mg Atenolol (Tenormin) 25 mg PO DAILY [facility] Last Admin: 10/15/17 09:27 Dose: 25 mg Atorvastatin Calcium (Lipitor) 80 mg PO DAILY [facility] Last Admin: 10/15/17 09:27 Dose: 80 mg Bisacodyl (Dulcolax Supp) 10 mg RECTAL DAILY PRN PRN Reason: SEVERE CONSITIPATION Clopidogrel Bisulfate (Plavix) 75 mg PO DAILY [facility] Last Admin: 10/15/17 09:27 Dose: 75 mg Doxycycline Hyclate (Vibramycin) 100 mg PO Q12HR [facility] Last Admin: 10/15/17 09:26 Dose: 100 mg Enoxaparin Sodium (Lovenox Inj) 40 mg SQ DAILY [facility] Last Admin: 10/14/17 18:44 Dose: Not Given Famotidine (Pepcid) 20 mg PO BID [facility] Last Admin: 10/15/17 09:27 Dose: 20 mg Lactulose (Lactulose Liq) 30 ml PO DAILY PRN PRN Reason: SEVERE CONSITIPATION Lisinopril (Prinivil) 40 mg PO DAILY [facility] Last Admin: 10/15/17 09:27 Dose: 40 mg Morphine Sulfate (Morphine Inj) 2 mg IV.PUSH Q3H PRN PRN Reason: PAIN SCALE 1 TO 10 Last Admin: 10/15/17 13:25 Dose: 2 mg Nitroglycerin (Nitro-Bid 2% Oint) 1 inch TOPICAL Q6HR [facility] Last Admin: 10/15/17 12:38 Dose: 1 inch Ondansetron HCl (Zofran Inj) 4 mg IV.PUSH Q6H PRN PRN Reason: NAUSEA Last Admin: 10/15/17 13:26 Dose: 4 mg Sennosides (Senokot) 17.2 mg PO Q12H PRN PRN Reason: Moderate Constipation Sertraline HCl (Zoloft) 150 mg PO DAILY [facility] Last Admin: 10/15/17 09:26 Dose: 150 mg Exam Vital signs: Vital Signs 10/14/17 15:53 10/14/17 15:54 10/14/17 18:45 Temperature Pulse Rate 86 86 82 Respiratory Rate 17 17 17 Blood Pressure 135/85 135/85 138/87 Pulse Oximetry 100 100 10/14/17 20:25 10/14/17 21:30 10/14/17 22:00 Temperature Pulse Rate 95 H 83 98 H Respiratory Rate 20 16 Blood Pressure 146/81 H 173/98 H Pulse Oximetry 97 98 10/15/17 00:00 10/15/17 01:00 10/15/17 03:50 Temperature Pulse Rate 97 H 80 82 Respiratory Rate 16 Blood Pressure 162/85 H Pulse Oximetry 95 10/15/17 04:00 10/15/17 08:00 10/15/17 09:47 Temperature Pulse Rate 65 77 82 Respiratory Rate 16 16 Blood Pressure 129/76 151/88 H Pulse Oximetry 100 98 10/15/17 09:49 10/15/17 09:50 10/15/17 10:36 Temperature Pulse Rate 78 86 Respiratory Rate 18 Blood Pressure Pulse Oximetry 10/15/17 12:00 Temperature 98.4 F Pulse Rate 72 Respiratory Rate 18 Blood Pressure 135/90 Pulse Oximetry 98 Intake & Output 10/14/17 10/15/17 10/15/17 18:59 06:59 18:59 Intake Total 480 / 480 Output Total 800 / 800 Balance -320 / -320 Weight 104.326 kg 92.7 kg Intake: Oral 480 / 480 Output: Urine 800 / 800 Results 10/15/17 06:28 10/15/17 06:28 Cardiac Enzymes 10/14/17 10/14/17 10/14/17 Range/Units 12:40 15:45 23:47 AST (15-37) U/L Troponin I Less than 0.02 L Less than 0.02 L (0.02-0.05) ng/mL B-Natriuretic Peptide 10 (0-100) pg/mL 10/15/17 Range/Units 06:28 AST 12 L (15-37) U/L Troponin I (0.02-0.05) ng/mL B-Natriuretic Peptide (0-100) pg/mL Coagulation 10/14/17 Range/Units 12:40 B-Natriuretic Peptide 10 (0-100) pg/mL CBC 10/15/17 Range/Units 06:28 WBC 15.6 H (4.0-11.0) th/mm3 RBC 5.04 (4.50-5.90) mil/mm3 Hgb 14.5 (13.0-17.0) gm/dL Hct 43.5 (39.0-51.0) % Plt Count 287 (150-450) th/mm3 Neut # (Auto) 11.8 H (1.8-7.7) th/mm3 Lymph # (Auto) 2.4 (1.0-4.8) th/mm3 [place] # (Auto) 1.2 H (0.0-0.9) th/mm3 Eos # (Auto) 0.1 (0.0-0.4) th/mm3 Baso # (Auto) 0.1 (0.0-0.2) th/mm3 Comprehensive Metabolic Panel 10/15/17 Range/Units 06:28 Sodium 140 (136-145) meq/L Potassium 4.0 (3.5-5.1) meq/L Chloride 106 (98-107) meq/L Carbon Dioxide 25.9 (21.0-32.0) meq/L BUN 12 (7-18) mg/dL Creatinine 0.85 (0.60-1.30) mg/dL Calcium 9.2 (8.5-10.1) mg/dL AST 12 L (15-37) U/L ALT 23 (12-78) U/L Alkaline Phosphatase 75 (45-117) U/L Total Protein 7.5 (6.4-8.2) g/dL Albumin 4.0 (3.4-5.0) g/dL Intake and Output 10/14/17 10/15/17 10/15/17 22:59 06:59 14:59 Intake Total 480 / 480 Output Total 800 / 800 Balance -320 / -320 Intake: Oral 480 / 480 Output: Urine 800 / 800 Other: Weight 92.7 kg Assessment and Plan - Plan The exam, history, and the medical decision-making described in the above note were completed with the assistance of the mid-level provider. I reviewed and agree with the findings presented. I attest that I had a [id number] encounter with the patient on the same day, and personally performed and documented my assessment and findings in the medical record. Has multiple symptoms will r/o sepsis. when stable consider cardiac cath.
[2017-10-15] MEDS: Sertraline 50 MG Tablet PO SCH (09:26)
[2017-10-15] MEDS: Atenolol 25 MG Tablet PO SCH (09:27)
[2017-10-15] MEDS: Lisinopril 20 MG Tablet PO SCH (09:27)
[2017-10-15] MEDS: Famotidine 20 MG Tablet PO SCH ×2 (09:27→21:20)
[2017-10-15] MEDS ORDERED: Naloxone Inj 0.4 MG/ML Vial IV.PUSH PRN (16:23)
--- NOTE | 2017-10-15 16:26 | P.PNIM ---
Subjective Interval history: Patient is a 52-year-old male with primary medical history of HTN, HLD, depression, CAD with 4 stents who came into the hospital for complaints of chest pain. Patient states the chest pain has been ongoing since this morning associated with slight nausea, no vomiting, no diaphoresis. Patient states that he woke up with a chest pain this morning. Have chest pain midsternal area radiating towards his neck towards his left jaw all the way radiating to the arms going down from shoulders. States he got some relief with morphine and nitro. States that usually work if he gets a Nitropaste. Patient continues to have pain rated 8/10, radiating towards the neck jaw arm. He denies any shortness of breath or dyspnea, cough, headaches, dizziness, palpitations Patient also reports bilateral armpit infection, states it is MRSA and he was started on clindamycin but he was taken off of it and placed on doxycycline. Discussed with patient will continue with the doxycycline. Patient also complains of burning sensation when he urinates. Reports urgency, frequency. Started yesterday. States he does not have any hematuria, fevers, chills, diarrhea. WBC 14.7, chemistry reviewed within normal. First troponin negative, BNP 10. Chest x-ray showed no acute intrathoracic disease. Stable examination of the chest. 8-3 CARDIAC WORKUP ON HOLD AT THIS TIME COMPLAINS OF HEADACHE AND NAUSEA WILL TREAT BOTH WILL STOP NITROPASTE DW RN AND PT AND CM Physical Exam Vital signs: Vital Signs 10/14/17 18:45 10/14/17 20:25 10/14/17 21:30 Temperature Pulse Rate 82 95 H 83 Respiratory Rate 17 20 16 Blood Pressure 138/87 146/81 H 173/98 H Pulse Oximetry 97 98 10/14/17 22:00 10/15/17 00:00 10/15/17 01:00 Temperature Pulse Rate 98 H 97 H 80 Respiratory Rate 16 Blood Pressure 162/85 H Pulse Oximetry 95 10/15/17 03:50 10/15/17 04:00 10/15/17 08:00 Temperature Pulse Rate 82 65 77 Respiratory Rate 16 16 Blood Pressure 129/76 151/88 H Pulse Oximetry 100 98 10/15/17 09:47 10/15/17 09:49 10/15/17 09:50 Temperature Pulse Rate 82 78 86 Respiratory Rate Blood Pressure Pulse Oximetry 10/15/17 10:36 10/15/17 12:00 10/15/17 15:02 Temperature 98.4 F Pulse Rate 72 Respiratory Rate 18 18 2 L Blood Pressure 135/90 Pulse Oximetry 98 Intake & Output 10/14/17 10/15/17 10/15/17 18:59 06:59 18:59 Intake Total 480 / 480 Output Total 800 / 800 Balance -320 / -320 Weight 104.326 kg 92.7 kg Intake: Oral 480 / 480 Output: Urine 800 / 800 Narrative: GENERAL: This is a well-nourished, well-developed patient, in no apparent distress. SKIN: Warm and dry. Bilateral axilla with hidradenitis suppurativa stage I HEENT: Normocephalic. Pupils equal round and reactive. Nose without bleeding. Airway patent. NECK: Trachea midline. Supple. CARDIOVASCULAR: Regular rate and rhythm without murmurs, gallops, or rubs. RESPIRATORY: Clear to auscultation. Breath sounds equal bilaterally. No wheezes , rales, or rhonchi. GASTROINTESTINAL: Abdomen soft, non-tender, nondistended. Bowel Sounds normoactive x4. MUSCULOSKELETAL: Extremities without clubbing, cyanosis, or edema. NEUROLOGICAL: Awake and alert. Oriented to time, place, person. No focal neuro deficit. Moves all extremities. Normal speech. Results - Labs CBC & Chem 7: 10/15/17 06:28 10/15/17 06:28 Laboratory Results - last 24 hr 10/14/17 10/14/17 10/14/17 12:40 15:45 22:12 WBC RBC Hgb Hct MCV MCH MCHC RDW Plt Count MPV Neut % (Auto) Lymph % (Auto) [place] % (Auto) Eos % (Auto) Baso % (Auto) Neut # (Auto) Lymph # (Auto) [place] # (Auto) Eos # (Auto) Baso # (Auto) WBC Differential Differential Comment Sodium Potassium Chloride Carbon Dioxide Anion Gap BUN Creatinine Estimated GFR Random Glucose Calcium Total Bilirubin AST ALT Alkaline Phosphatase Troponin I Less than 0.02 L B-Natriuretic Peptide 10 Total Protein Albumin Urine Color Straw Urine Clarity Clear Urine pH 7.0 Ur Specific [place] 1.004 Urine Protein Negative Urine Glucose (UA) Negative Urine Ketones Negative Urine Occult Blood Moderate H Urine Nitrate Negative Urine Bilirubin Negative Urine Urobilinogen Less than 2 Ur Leukocyte Esterase Large H Urine RBC 3 Urine WBC 43 H Ur Squamous Epith Cells <1 Urine Bacteria Rare H Micro UA Comment Culture indicated Urine Culture Comments Culture indicated 10/14/17 10/15/17 10/15/17 23:47 06:28 06:28 WBC 15.6 H RBC 5.04 Hgb 14.5 Hct 43.5 MCV 86.3 MCH 28.7 MCHC 33.3 RDW 13.6 Plt Count 287 MPV 7.3 Neut % (Auto) 75.9 H Lymph % (Auto) 15.2 [place] % (Auto) 7.9 Eos % (Auto) 0.5 Baso % (Auto) 0.5 Neut # (Auto) 11.8 H Lymph # (Auto) 2.4 [place] # (Auto) 1.2 H Eos # (Auto) 0.1 Baso # (Auto) 0.1 WBC Differential . Differential Comment Auto diff final Sodium 140 Potassium 4.0 Chloride 106 Carbon Dioxide 25.9 Anion Gap 8 BUN 12 Creatinine 0.85 Estimated GFR Greater than 89 Random Glucose 110 H Calcium 9.2 Total Bilirubin 0.6 AST 12 L ALT 23 Alkaline Phosphatase 75 Troponin I Less than 0.02 L B-Natriuretic Peptide Total Protein 7.5 Albumin 4.0 Urine Color Urine Clarity Urine pH Ur Specific [place] Urine Protein Urine Glucose (UA) Urine Ketones Urine Occult Blood Urine Nitrate Urine Bilirubin Urine Urobilinogen Ur Leukocyte Esterase Urine RBC Urine WBC Ur Squamous Epith Cells Urine Bacteria Micro UA Comment Urine Culture Comments Microbiology 10/14/17 22:12 Clean Catch Urine Urine Culture - Preliminary gram negative rods - Imaging Chest X-Ray 10/14/17 12:51 CONCLUSION: No acute intrathoracic disease. Stable examination of the chest. - Procedures NONE Assessment and Plan - Assessment (1) Chest pain Code(s): R07.9 - Chest pain, unspecified Status: Acute - Plan Patient is a 52-year-old male with primary medical history of HTN, HLD, depression, CAD with 4 stents who came into the hospital for complaints of chest pain Chest pain rule out ACS -Serial troponin, serial EKG -Dr. Miranda consulted - NO CATH AT THIS TIME -No heparin drip for now, patient was given Plavix -Nitro paste -DC NITROPASTE -Morphine as needed -Place patient on telemetry -Chest x-ray negative, initial EKG reviewed sinus rhythm, negative initial troponin Hydradenitis suppurativa -Start doxycycline twice daily -Continue to monitor Complaints of urinary symptoms -Check UA -POSITIVE UTI - GNR ADD ROCEPHIN HTN HLD CAD, history of stent placement -Continue home medications -Monitor BP trend DVT prop SCDs AM LABS DW RN AND PT AND CM Code Status: FULL CODE Discussed Condition With: RN AND PT Discharge Planning: PENDING IMPROVEMENT (1) Chest pain Qualifiers: Chest pain type: unspecified Qualified Code(s): R07.9 - Chest pain, unspecified
[2017-10-16] MEDS: Sertraline 50 MG Tablet PO SCH (09:11)
[2017-10-16] MEDS: Lisinopril 20 MG Tablet PO SCH (09:11)
[2017-10-16] MEDS: Famotidine 20 MG Tablet PO SCH ×2 (09:12→21:28)
[2017-10-16] MEDS: Atenolol 25 MG Tablet PO SCH (09:12)
--- NOTE | 2017-10-16 09:24 | P.CONID ---
History of Present Illness Service: ID Consult date: 10/16/17 Requesting Physician: Vipin Barrios Reason for Consult: leukocytosis Primary Care Provider: [facility] Family Provider: [facility] Chief Complaint: Chest Pain History of Present Illness: 52 yo male with CAD -presented with chest pain. He is supposed to have cardiac cath that was postponed 2/2 infections 1 day prior to admission pt noticed disuria and his UA was quite abnormal with prominent pyuria His urine culture is positive for GNR >100 K Pt has leukocytosis of 15 K and no fever Also c/o painful draining lesions is b/l axillae areas. He has a h/o hydradenitis suppurative (HS) since 2016 Lesions improved since he was started on antibiotics, but have not resolved completely yet He stated that he was diagnosed with MRSa in one of the draining lesions recently He is on Rocephin, doxycyline ID on urin e cl x isolate is P Review of Systems All other systems reviewed negative except as stated in HPI PMFSH - History History Provided By: Patient - Medical History Medical History: Medical History (Last Reviewed 10/16/17 @ 09:20 by Nel Loja MD) Hidradenitis suppurativa (Acute) CAD (coronary artery disease) (Acute) HTN (hypertension) (Acute) Depression HLD (hyperlipidemia) UTI (urinary tract infection) - Surgical History Surgical History: Surgical History (Last Reviewed 10/16/17 @ 09:20 by Nel Loja MD) S/P coronary artery stent placement - Family History Family History: Family History (Last Reviewed 10/16/17 @ 09:20 by Nel Loja MD) Father Stroke Mother Diabetes History of permanent cardiac pacemaker placement - Social History I have reviewed the patient's Social History: Yes - Tobacco History Second Hand Smoke Exposure: No Tobacco Use In Past 30 Days: No Smoking Status: Former smoker Tobacco Type: Cigarettes - Alcohol History How Often Do You Have a Drink Containing Alcohol: Never - Substance Use History Substance History: Past History - Substance Use Type Marijuana Status: Active Route Used: Inhalation Frequency: Marijuana Reason for Use: Calm Down - Travel History History of Recent Travel: No Recent Travel in the [place] Within the Last 8 Weeks: No Recent Travel Out of the Country Within the Last 8 Weeks: No - Immunization History Tetanus Immunization: Unsure Medications and Allergies Active Medications: Active Medications Acetaminophen (Tylenol) 650 mg PO Q4H PRN PRN Reason: Headache, fever, pain 1-5 Last Admin: 10/14/17 20:23 Dose: 650 mg Hydrocodone Bitart/Acetaminophen ([place] 7.5/325) 1 tab PO Q4H PRN PRN Reason: PAIN SCALE 6 TO 10 Last Admin: 10/15/17 21:20 Dose: 1 tab Al Hydroxide/Mg Hydroxide (Milk Of Magnesia Liq) 30 ml PO Q12H PRN PRN Reason: Mild Constipation Aspirin (Aspirin Chew) 81 mg PO DAILY [facility] Last Admin: 10/16/17 09:12 Dose: 81 mg Atenolol (Tenormin) 25 mg PO DAILY [facility] Last Admin: 10/16/17 09:12 Dose: 25 mg Atorvastatin Calcium (Lipitor) 80 mg PO [facility] Bisacodyl (Dulcolax Supp) 10 mg RECTAL DAILY PRN PRN Reason: SEVERE CONSITIPATION Clopidogrel Bisulfate (Plavix) 75 mg PO DAILY [facility] Last Admin: 10/16/17 09:11 Dose: 75 mg Doxycycline Hyclate (Vibramycin) 100 mg PO Q12HR [facility] Last Admin: 10/16/17 09:12 Dose: 100 mg Enoxaparin Sodium (Lovenox Inj) 40 mg SQ DAILY [facility] Last Admin: 10/14/17 18:44 Dose: Not Given Famotidine (Pepcid) 20 mg PO BID [facility] Last Admin: 10/16/17 09:12 Dose: 20 mg Ceftriaxone Sodium 1,000 mg/ (Sodium Chloride) 100 mls @ 200 mls/hr IV.SIG Q24H [facility] Last Infusion: 10/15/17 19:00 Dose: Infused Lactulose (Lactulose Liq) 30 ml PO DAILY PRN PRN Reason: SEVERE CONSITIPATION Lisinopril (Prinivil) 40 mg PO DAILY [facility] Last Admin: 10/16/17 09:11 Dose: 40 mg Morphine Sulfate (Morphine Inj) 2 mg IV.PUSH Q3H PRN PRN Reason: PAIN SCALE 1 TO 10 Last Admin: 10/15/17 13:25 Dose: 2 mg Naloxone HCl (Narcan Inj) 0.4 mg IV.PUSH UNSCH PRN PRN Reason: SEE LABEL COMMENTS Ondansetron HCl (Zofran Inj) 4 mg IV.PUSH Q6H PRN PRN Reason: NAUSEA Last Admin: 10/15/17 13:26 Dose: 4 mg Sennosides (Senokot) 17.2 mg PO Q12H PRN PRN Reason: Moderate Constipation Sertraline HCl (Zoloft) 150 mg PO DAILY [facility] Last Admin: 10/16/17 09:11 Dose: 150 mg Allergies Allergy/AdvReac Type Severity Reaction Status Date / Time iodine Allergy Severe Anaphylaxis Verified 12/03/17 18:33 Sulfa (Sulfonamide Allergy Severe Vomiting Verified 12/03/17 18:33 Antibiotics) shellfish derived Allergy Unknown Anaphylaxis Verified 12/03/17 18:33 Home Medications Medication Instructions Recorded Confirmed Type aspirin 81 mg PO DAILY 10/14/17 10/14/17 History ranitidine HCl [Zantac] 150 mg PO BID 10/14/17 10/14/17 History sertraline [Zoloft] 150 mg PO DAILY 10/14/17 10/14/17 History atenolol 25 mg PO DAILY 12/03/17 12/03/17 History cholecalciferol (vitamin D3) 1,000 unit PO DAILY 12/03/17 12/03/17 History [Vitamin D3] clopidogrel [Plavix] 75 mg PO DAILY 12/03/17 12/03/17 History lisinopril 40 mg PO DAILY 12/03/17 12/03/17 History rosuvastatin [Crestor] 40 mg PO DAILY 12/03/17 12/03/17 History Exam Vital signs: Vital Signs 10/15/17 09:47 10/15/17 09:49 10/15/17 09:50 Temperature Pulse Rate 82 78 86 Respiratory Rate Blood Pressure Pulse Oximetry 10/15/17 10:36 10/15/17 12:00 10/15/17 15:02 Temperature 98.4 F Pulse Rate 72 Respiratory Rate 18 18 2 L Blood Pressure 135/90 Pulse Oximetry 98 10/15/17 16:00 10/15/17 19:00 10/15/17 20:00 Temperature 98.2 F 98.8 F Pulse Rate 73 86 82 Respiratory Rate 18 16 Blood Pressure 147/90 H 143/78 H Pulse Oximetry 98 96 10/15/17 21:00 10/15/17 22:00 10/15/17 23:00 Temperature Pulse Rate 76 72 66 Respiratory Rate Blood Pressure Pulse Oximetry 10/15/17 23:44 10/16/17 00:00 10/16/17 01:00 Temperature 98.3 F Pulse Rate 66 64 66 Respiratory Rate 16 Blood Pressure 120/74 Pulse Oximetry 96 10/16/17 02:00 10/16/17 03:00 10/16/17 04:00 Temperature 98.5 F Pulse Rate 64 62 66 Respiratory Rate 16 Blood Pressure Pulse Oximetry 10/16/17 05:00 10/16/17 05:34 10/16/17 06:00 Temperature Pulse Rate 70 61 64 Respiratory Rate 16 Blood Pressure 145/85 H Pulse Oximetry 98 Intake & Output 10/15/17 10/16/17 10/16/17 18:59 06:59 18:59 Intake Total 450 / 450 580 / 580 Output Total 500 / 500 800 / 800 Balance -50 / -50 -220 / -220 Weight 93 kg Intake: IV 100 / 100 Rocephin Inj 1,000 MG In NS Inj 100 / 100 100 ML @ 200 mls/hr IV.SIG Q24H [facility] Rx#:[id number] Oral 450 / 450 480 / 480 Output: Urine 450 / 450 800 / 800 Emesis 50 / 50 Other: # Bowel Movements 0 - Constitutional no acute distress, average body habitus - Routine HEENT Exam Head: Present: normocephalic, atraumatic Eye: Present: EOMI, PERRL ENT: Present: mucous membranes moist, oropharynx clear - Routine Neck Exam Present: supple, full ROM - Routine Respiratory Exam Present: CTA bilaterally Comments: good effort - Routine Cardiovascular Exam Present: RRR, S1, S2 Comments: no murmurs, rubs gallops well perfused perifery - Routine Abdominal Exam Present: soft Comments: not tender not distended no hepatosplenomegaly no masses - Routine Extremities Exam Present: full ROM, pulses intact Comments: no cyanosis, no clubbing no edema - Routine Skin Exam Present: intact, dry, warm - Routine Neurological Exam Present: alert, oriented X3, moving all extremities, vision grossly intact, hearing grossly intact, normal speech - Routine Psychiatric Exam Present: normal affect, normal thought process, cooperative Results - Labs CBC & Chem 7: 10/19/17 21:07 10/19/17 07:58 Labs: Laboratory Results - last 24 hr 10/14/17 22:12 Urine Color Straw Urine Clarity Clear Urine pH 7.0 Ur Specific [place] 1.004 Urine Protein Negative Urine Glucose (UA) Negative Urine Ketones Negative Urine Occult Blood Moderate H Urine Nitrate Negative Urine Bilirubin Negative Urine Urobilinogen Less than 2 Ur Leukocyte Esterase Large H Urine RBC 3 Urine WBC 43 H Ur Squamous Epith Cells <1 Urine Bacteria Rare H Micro UA Comment Culture indicated Urine Culture Comments Culture indicated - Imaging Chest X-Ray 10/14/17 12:51 CONCLUSION: No acute intrathoracic disease. Stable examination of the chest. Assessment and Plan - Plan CHest pain, awaiting cardiac cath UTI, GNB MIld flare up of HS - improving on doxy leukocytosis cont CFTX cont doxycyline' FU urine clx until final ID/S repeat CBC
[2017-10-16 09:41] LABS: Baso # (Auto) 0.1 th/mm3 (0.0-0.2); Baso % (Auto) 0.7 % (0.0-2.0); Eos # (Auto) 0.1 th/mm3 (0.0-0.4); Eos % (Auto) 1.6 % (0.0-4.0); Hematocrit 45.7 % (39.0-51.0); Hemoglobin 15.6 gm/dL (13.0-17.0); Lymph # (Auto) 2.5 th/mm3 (1.0-4.8); Lymph % (Auto) 26.8 % (9.0-44.0); Mean Corpuscular HGB Conc 34.1 % (32.0-36.0); Mean Corpuscular Hemoglobin 29.6 pg (27.0-34.0); Mean Corpuscular Volume 86.9 fL (80.0-100.0); Mean Platelet Volume 7.4 fL (7.0-11.0); Mono # (Auto) 0.6 th/mm3 (0.0-0.9); Mono % (Auto) 6.9 % (0.0-8.0); Platelet Count 300 th/mm3 (150-450); Red Blood Count 5.26 mil/mm3 (4.50-5.90); Red Cell Distribution Width 13.6 % (11.6-17.2); White Blood Count 9.3 th/mm3 (4.0-11.0)
[2017-10-16 10:09] LABS: Albumin 4.1 g/dL (3.4-5.0); Anion Gap 10 meq/L (5-15); Aspartate Aminotransferase 11 U/L (15-37); Blood Urea Nitrogen 14 mg/dL (7-18); Calcium 9.3 mg/dL (8.5-10.1); Carbon Dioxide 26.2 meq/L (21.0-32.0); Chloride 105 meq/L (98-107); Glomerular Filtration Rate Greater Than 89 mL/min (>89); Glucose,Random 142 mg/dL (74-106); Magnesium 2.1 mg/dL (1.5-2.5); Potassium 4.1 meq/L (3.5-5.1); Sodium 141 meq/L (136-145)
[2017-10-16 10:10] LABS: Alanine Aminotransferase 21 U/L (12-78); Phosphorus 2.9 mg/dL (2.5-4.9)
[2017-10-16 10:19] LABS: Alkaline Phosphatase 77 U/L (45-117); Free T4 (Free Thyroxine) 1.12 ng/dL (0.76-1.46); Total Protein 7.9 g/dL (6.4-8.2)
--- NOTE | 2017-10-16 10:33 | P.PNIM ---
Subjective Interval history: Patient is a 52-year-old male with primary medical history of HTN, HLD, depression, CAD with 4 stents who came into the hospital for complaints of chest pain. Patient states the chest pain has been ongoing since this morning associated with slight nausea, no vomiting, no diaphoresis. Patient states that he woke up with a chest pain this morning. Have chest pain midsternal area radiating towards his neck towards his left jaw all the way radiating to the arms going down from shoulders. States he got some relief with morphine and nitro. States that usually work if he gets a Nitropaste. Patient continues to have pain rated 8/10, radiating towards the neck jaw arm. He denies any shortness of breath or dyspnea, cough, headaches, dizziness, palpitations Patient also reports bilateral armpit infection, states it is MRSA and he was started on clindamycin but he was taken off of it and placed on doxycycline. Discussed with patient will continue with the doxycycline. Patient also complains of burning sensation when he urinates. Reports urgency, frequency. Started yesterday. States he does not have any hematuria, fevers, chills, diarrhea. WBC 14.7, chemistry reviewed within normal. First troponin negative, BNP 10. Chest x-ray showed no acute intrathoracic disease. Stable examination of the chest. 8-3 CARDIAC WORKUP ON HOLD AT THIS TIME COMPLAINS OF HEADACHE AND NAUSEA WILL TREAT BOTH WILL STOP NITROPASTE DW RN AND PT AND CM 8-4 SEEN BY ID CATH ON HOLD HX OF MRSA HAS GNR UTI AM LABS AWAIT CULTURES DENIES ANY CHEST PAIN DENIES ANY BURNING ON URINATION NOW Physical Exam Vital signs: Vital Signs 10/15/17 10:36 10/15/17 12:00 10/15/17 15:02 Temperature 98.4 F Pulse Rate 72 Respiratory Rate 18 18 2 L Blood Pressure 135/90 Pulse Oximetry 98 10/15/17 16:00 10/15/17 19:00 10/15/17 20:00 Temperature 98.2 F 98.8 F Pulse Rate 73 86 82 Respiratory Rate 18 16 Blood Pressure 147/90 H 143/78 H Pulse Oximetry 98 96 10/15/17 21:00 10/15/17 22:00 10/15/17 23:00 Temperature Pulse Rate 76 72 66 Respiratory Rate Blood Pressure Pulse Oximetry 10/15/17 23:44 10/16/17 00:00 10/16/17 01:00 Temperature 98.3 F Pulse Rate 66 64 66 Respiratory Rate 16 Blood Pressure 120/74 Pulse Oximetry 96 10/16/17 02:00 10/16/17 03:00 10/16/17 04:00 Temperature 98.5 F Pulse Rate 64 62 66 Respiratory Rate 16 Blood Pressure Pulse Oximetry 10/16/17 05:00 10/16/17 05:34 10/16/17 06:00 Temperature Pulse Rate 70 61 64 Respiratory Rate 16 Blood Pressure 145/85 H Pulse Oximetry 98 10/16/17 07:00 10/16/17 08:00 Temperature 98.3 F Pulse Rate 68 68 Respiratory Rate 18 Blood Pressure 146/81 H Pulse Oximetry 98 Intake & Output 10/15/17 10/16/17 10/16/17 18:59 06:59 18:59 Intake Total 450 / 450 580 / 580 Output Total 500 / 500 800 / 800 Balance -50 / -50 -220 / -220 Weight 93 kg Intake: IV 100 / 100 Rocephin Inj 1,000 MG In NS Inj 100 / 100 100 ML @ 200 mls/hr IV.SIG Q24H [facility] Rx#:[id number] Oral 450 / 450 480 / 480 Output: Urine 450 / 450 800 / 800 Emesis 50 / 50 Other: # Bowel Movements 0 Narrative: GENERAL: This is a well-nourished, well-developed patient, in no apparent distress. SKIN: Warm and dry. Bilateral axilla with hidradenitis suppurativa stage I HEENT: Normocephalic. Pupils equal round and reactive. Nose without bleeding. Airway patent. NECK: Trachea midline. Supple. CARDIOVASCULAR: Regular rate and rhythm without murmurs, gallops, or rubs. RESPIRATORY: Clear to auscultation. Breath sounds equal bilaterally. No wheezes , rales, or rhonchi. GASTROINTESTINAL: Abdomen soft, non-tender, nondistended. Bowel Sounds normoactive x4. MUSCULOSKELETAL: Extremities without clubbing, cyanosis, or edema. NEUROLOGICAL: Awake and alert. Oriented to time, place, person. No focal neuro deficit. Moves all extremities. Normal speech. Results - Labs CBC & Chem 7: 10/16/17 09:01 10/16/17 09:01 Laboratory Results - last 24 hr 0810/16/17 10/16/17 22:12 09:01 09:01 WBC 9.3 RBC 5.26 Hgb 15.6 Hct 45.7 MCV 86.9 MCH 29.6 MCHC 34.1 RDW 13.6 Plt Count 300 MPV 7.4 Neut % (Auto) 64.0 Lymph % (Auto) 26.8 [place] % (Auto) 6.9 Eos % (Auto) 1.6 Baso % (Auto) 0.7 Neut # (Auto) 6.0 Lymph # (Auto) 2.5 [place] # (Auto) 0.6 Eos # (Auto) 0.1 Baso # (Auto) 0.1 WBC Differential . Differential Comment Auto diff final Sodium 141 Potassium 4.1 Chloride 105 Carbon Dioxide 26.2 Anion Gap 10 BUN 14 Creatinine 0.89 Estimated GFR Greater than 89 Random Glucose 142 H Calcium 9.3 Phosphorus 2.9 Magnesium 2.1 Total Bilirubin 0.6 AST 11 L ALT 21 Alkaline Phosphatase 77 Total Protein 7.9 Albumin 4.1 TSH 0.880 Free T4 1.12 Urine Color Straw Urine Clarity Clear Urine pH 7.0 Ur Specific [place] 1.004 Urine Protein Negative Urine Glucose (UA) Negative Urine Ketones Negative Urine Occult Blood Moderate H Urine Nitrate Negative Urine Bilirubin Negative Urine Urobilinogen Less than 2 Ur Leukocyte Esterase Large H Urine RBC 3 Urine WBC 43 H Ur Squamous Epith Cells <1 Urine Bacteria Rare H Micro UA Comment Culture indicated Urine Culture Comments Culture indicated Microbiology 10/14/17 22:12 Clean Catch Urine Urine Culture - Preliminary gram negative rods - Imaging Chest X-Ray 10/14/17 12:51 CONCLUSION: No acute intrathoracic disease. Stable examination of the chest. - Procedures NONE Assessment and Plan - Assessment (1) Chest pain Code(s): R07.9 - Chest pain, unspecified Status: Acute - Plan Patient is a 52-year-old male with primary medical history of HTN, HLD, depression, CAD with 4 stents who came into the hospital for complaints of chest pain Chest pain rule out ACS -Serial troponin, serial EKG -Dr. Miranda consulted - NO CATH AT THIS TIME -No heparin drip for now, patient was given Plavix -Nitro paste -DC NITROPASTE -Morphine as needed -Place patient on telemetry -Chest x-ray negative, initial EKG reviewed sinus rhythm, negative initial troponin Hydradenitis suppurativa -Start doxycycline twice daily -Continue to monitor Complaints of urinary symptoms -Check UA -POSITIVE UTI - GNR ADD ROCEPHIN-CULTURES STILL PENDING HTN HLD CAD, history of stent placement -Continue home medications -Monitor BP trend ???CATH PER CARDIOLOGY DVT prop SCDs AM LABS DW RN AND PT AND CM Code Status: FULL CODE Discussed Condition With: RN AND PT AND CM Discharge Planning: PENDING IMPROVEMENT (1) Chest pain Qualifiers: Chest pain type: unspecified Qualified Code(s): R07.9 - Chest pain, unspecified
[2017-10-16 11:34] LABS: Baso # (Auto) 0.1 th/mm3 (0.0-0.2); Eos # (Auto) 0.2 th/mm3 (0.0-0.4); Eos % (Auto) 1.6 % (0.0-4.0); Hematocrit 46.7 % (39.0-51.0); Hemoglobin 15.7 gm/dL (13.0-17.0); Lymph # (Auto) 3.1 th/mm3 (1.0-4.8); Lymph % (Auto) 29.3 % (9.0-44.0); Mean Corpuscular HGB Conc 33.6 % (32.0-36.0); Mean Corpuscular Volume 86.4 fL (80.0-100.0); Mean Platelet Volume 7.2 fL (7.0-11.0); Mono % (Auto) 9.2 % (0.0-8.0); Neut # (Auto) 6.3 th/mm3 (1.8-7.7); Neut % (Auto) 58.9 % (16.0-70.0); Platelet Count 331 th/mm3 (150-450); Red Cell Distribution Width 13.5 % (11.6-17.2); White Blood Count 10.7 th/mm3 (4.0-11.0)
[2017-10-16] MEDS: Enoxaparin Inj 40 MG/0.4 ML Syringe SQ SCH (11:55)
[2017-10-16 13:39] LABS: Hemoglobin A1c 5.3 % (4.3-6.0)
--- NOTE | 2017-10-16 17:18 | P.PNCA ---
Subjective Interval history: NO COMPLAINTS OF CHEST PAIN OR SOB TROPONINS NEGATIVE FOR ACS Physical Exam Vital signs: Vital Signs 10/15/17 19:00 10/15/17 20:00 10/15/17 21:00 Temperature 98.8 F Pulse Rate 86 82 76 Respiratory Rate 16 Blood Pressure 143/78 H Pulse Oximetry 96 10/15/17 22:00 10/15/17 23:00 10/15/17 23:44 Temperature 98.3 F Pulse Rate 72 66 66 Respiratory Rate 16 Blood Pressure 120/74 Pulse Oximetry 96 10/16/17 00:00 10/16/17 01:00 10/16/17 02:00 Temperature Pulse Rate 64 66 64 Respiratory Rate Blood Pressure Pulse Oximetry 10/16/17 03:00 10/16/17 04:00 10/16/17 05:00 Temperature 98.5 F Pulse Rate 62 66 70 Respiratory Rate 16 Blood Pressure Pulse Oximetry 10/16/17 05:34 10/16/17 06:00 10/16/17 07:00 Temperature Pulse Rate 61 64 68 Respiratory Rate 16 Blood Pressure 145/85 H Pulse Oximetry 98 10/16/17 08:00 10/16/17 09:00 10/16/17 10:00 Temperature 98.3 F Pulse Rate 72 70 72 Respiratory Rate 18 Blood Pressure 146/81 H Pulse Oximetry 98 10/16/17 11:00 10/16/17 12:00 10/16/17 13:00 Temperature 98.3 F Pulse Rate 67 70 64 Respiratory Rate 18 Blood Pressure 156/101 H Pulse Oximetry 98 10/16/17 14:00 10/16/17 15:00 10/16/17 16:00 Temperature 99.0 F Pulse Rate 66 64 67 Respiratory Rate 18 Blood Pressure 128/75 Pulse Oximetry 99 Intake & Output 10/15/17 10/16/17 10/16/17 18:59 06:59 18:59 Intake Total 450 / 450 580 / 580 Output Total 500 / 500 800 / 800 Balance -50 / -50 -220 / -220 Weight 93 kg Intake: IV 100 / 100 Rocephin Inj 1,000 MG In NS Inj 100 / 100 100 ML @ 200 mls/hr IV.SIG Q24H [facility] Rx#:[id number] Oral 450 / 450 480 / 480 Output: Urine 450 / 450 800 / 800 Emesis 50 / 50 Other: # Bowel Movements 0 - Constitutional no acute distress - Routine HEENT Exam Head: Present: normocephalic Eye: Present: EOMI ENT: Present: mucous membranes moist - Routine Neck Exam Present: supple - Routine Respiratory Exam Present: CTA bilaterally - Routine Cardiovascular Exam Present: RRR - Routine Abdominal Exam Present: soft, normoactive bowel sounds - Routine Neurological Exam Present: alert, oriented X3 Assessment and Plan - Plan The exam, history, and the medical decision-making described in the above note were completed with the assistance of the mid-level provider. I reviewed and agree with the findings presented. I attest that I had a [id number] encounter with the patient on the same day, and personally performed and documented my assessment and findings in the medical record. Has multiple symptoms will r/o sepsis. when stable consider cardiac cath. 10/16/2017 MEDICATIONS REVIEWED IV ABX NOTED CARDIAC CATH PER DR. SHE PORTILLO/JOSE.
[2017-10-16] MEDS: Morphine Inj 4 MG/ML Vial IV.PUSH PRN (20:56)
[2017-10-17] MEDS: Sertraline 50 MG Tablet PO SCH (09:45)
[2017-10-17] MEDS: Enoxaparin Inj 40 MG/0.4 ML Syringe SQ SCH (09:48)
[2017-10-17] MEDS: Famotidine 20 MG Tablet PO SCH ×2 (09:49→21:38)
[2017-10-17] MEDS: Atenolol 25 MG Tablet PO SCH (09:49)
[2017-10-17] MEDS: Lisinopril 20 MG Tablet PO SCH (09:49)
[2017-10-17 10:02] LABS: Baso # (Auto) 0.1 th/mm3 (0.0-0.2); Baso % (Auto) 1.1 % (0.0-2.0); Eos # (Auto) 0.1 th/mm3 (0.0-0.4); Eos % (Auto) 2.2 % (0.0-4.0); Hematocrit 45.1 % (39.0-51.0); Hemoglobin 15.7 gm/dL (13.0-17.0); Lymph # (Auto) 2.2 th/mm3 (1.0-4.8); Lymph % (Auto) 32.3 % (9.0-44.0); Mean Corpuscular HGB Conc 34.9 % (32.0-36.0); Mean Corpuscular Volume 86.1 fL (80.0-100.0); Mono # (Auto) 0.6 th/mm3 (0.0-0.9); Mono % (Auto) 8.6 % (0.0-8.0); Neut # (Auto) 3.8 th/mm3 (1.8-7.7); Neut % (Auto) 55.8 % (16.0-70.0); Platelet Count 301 th/mm3 (150-450); Red Blood Count 5.23 mil/mm3 (4.50-5.90); White Blood Count 6.8 th/mm3 (4.0-11.0)
--- NOTE | 2017-10-17 10:13 | P.PNIM ---
Subjective Interval history: Patient is a 52-year-old male with primary medical history of HTN, HLD, depression, CAD with 4 stents who came into the hospital for complaints of chest pain. Patient states the chest pain has been ongoing since this morning associated with slight nausea, no vomiting, no diaphoresis. Patient states that he woke up with a chest pain this morning. Have chest pain midsternal area radiating towards his neck towards his left jaw all the way radiating to the arms going down from shoulders. States he got some relief with morphine and nitro. States that usually work if he gets a Nitropaste. Patient continues to have pain rated 8/10, radiating towards the neck jaw arm. He denies any shortness of breath or dyspnea, cough, headaches, dizziness, palpitations Patient also reports bilateral armpit infection, states it is MRSA and he was started on clindamycin but he was taken off of it and placed on doxycycline. Discussed with patient will continue with the doxycycline. Patient also complains of burning sensation when he urinates. Reports urgency, frequency. Started yesterday. States he does not have any hematuria, fevers, chills, diarrhea. WBC 14.7, chemistry reviewed within normal. First troponin negative, BNP 10. Chest x-ray showed no acute intrathoracic disease. Stable examination of the chest. 8-3 CARDIAC WORKUP ON HOLD AT THIS TIME COMPLAINS OF HEADACHE AND NAUSEA WILL TREAT BOTH WILL STOP NITROPASTE DW RN AND PT AND CM 8-4 SEEN BY ID CATH ON HOLD HX OF MRSA HAS GNR UTI AM LABS AWAIT CULTURES DENIES ANY CHEST PAIN DENIES ANY BURNING ON URINATION NOW 8-5 HAD ACTIVE CHEST PAIN LAST NIGHT TREATED WITH MORPHINE AND NORCO SHU RN AND PT AWAIT CARDIAC INPUT FOR TODAY AM LABS CATH LATER THIS WEEK Physical Exam Vital signs: Vital Signs 10/16/17 11:00 10/16/17 12:00 10/16/17 13:00 Temperature 98.3 F Pulse Rate 67 70 64 Respiratory Rate 18 Blood Pressure 156/101 H Pulse Oximetry 98 10/16/17 14:00 10/16/17 15:00 10/16/17 16:00 Temperature 99.0 F Pulse Rate 66 62 67 Respiratory Rate 18 Blood Pressure 128/75 Pulse Oximetry 99 10/16/17 17:00 10/16/17 18:00 10/16/17 19:00 Temperature Pulse Rate 66 72 75 Respiratory Rate Blood Pressure Pulse Oximetry 10/16/17 20:00 10/16/17 20:58 10/16/17 21:00 Temperature 98.6 F Pulse Rate 78 62 Respiratory Rate 16 16 Blood Pressure 139/86 Pulse Oximetry 96 10/16/17 22:00 10/16/17 23:00 10/16/17 23:35 Temperature Pulse Rate 66 67 70 Respiratory Rate 16 Blood Pressure 135/78 Pulse Oximetry 99 10/17/17 00:00 10/17/17 01:00 10/17/17 02:00 Temperature Pulse Rate 70 68 68 Respiratory Rate Blood Pressure Pulse Oximetry 10/17/17 03:00 10/17/17 04:00 10/17/17 05:00 Temperature Pulse Rate 65 56 L 60 Respiratory Rate Blood Pressure Pulse Oximetry 10/17/17 05:10 10/17/17 06:00 10/17/17 07:00 Temperature Pulse Rate 54 L 60 62 Respiratory Rate 16 Blood Pressure 125/76 Pulse Oximetry 96 10/17/17 07:02 Temperature 97.9 F Pulse Rate 61 Respiratory Rate 16 Blood Pressure 124/75 Pulse Oximetry 97 Intake & Output 10/16/17 10/17/17 10/17/17 18:59 06:59 18:59 Intake Total 100 / 100 480 / 480 Output Total 500 / 500 Balance 100 / 100 -20 / -20 Weight 93.2 kg Intake: IV 100 / 100 Rocephin Inj 1,000 MG In NS Inj 100 / 100 100 ML @ 200 mls/hr IV.SIG Q24H [facility] Rx#:[id number] Oral 480 / 480 Output: Urine 500 / 500 Other: # Bowel Movements 0 Narrative: GENERAL: This is a well-nourished, well-developed patient, in no apparent distress. SKIN: Warm and dry. Bilateral axilla with hidradenitis suppurativa stage I HEENT: Normocephalic. Pupils equal round and reactive. Nose without bleeding. Airway patent. NECK: Trachea midline. Supple. CARDIOVASCULAR: Regular rate and rhythm without murmurs, gallops, or rubs. RESPIRATORY: Clear to auscultation. Breath sounds equal bilaterally. No wheezes , rales, or rhonchi. GASTROINTESTINAL: Abdomen soft, non-tender, nondistended. Bowel Sounds normoactive x4. MUSCULOSKELETAL: Extremities without clubbing, cyanosis, or edema. NEUROLOGICAL: Awake and alert. Oriented to time, place, person. No focal neuro deficit. Moves all extremities. Normal speech. Results - Labs CBC & Chem 7: 10/17/17 09:33 10/16/17 09:01 Laboratory Results - last 24 hr 10/16/17 10/16/17 10/16/17 09:01 09:01 11:02 WBC 10.7 RBC 5.40 Hgb 15.7 Hct 46.7 MCV 86.4 MCH 29.0 MCHC 33.6 RDW 13.5 Plt Count 331 MPV 7.2 Neut % (Auto) 58.9 Lymph % (Auto) 29.3 Garrett % (Auto) 9.2 H Eos % (Auto) 1.6 Baso % (Auto) 1.0 Neut # (Auto) 6.3 Lymph # (Auto) 3.1 Garrett # (Auto) 1.0 H Eos # (Auto) 0.2 Baso # (Auto) 0.1 WBC Differential . Differential Comment Auto diff final Sodium 141 Potassium 4.1 Chloride 105 Carbon Dioxide 26.2 Anion Gap 10 BUN 14 Creatinine 0.89 Estimated GFR Greater than 89 Random Glucose 142 H Hemoglobin A1c 5.3 Calcium 9.3 Phosphorus 2.9 Magnesium 2.1 Total Bilirubin 0.6 AST 11 L ALT 21 Alkaline Phosphatase 77 Total Protein 7.9 Albumin 4.1 TSH 0.880 Free T4 1.12 10/17/17 09:33 WBC 6.8 RBC 5.23 Hgb 15.7 Hct 45.1 MCV 86.1 MCH 30.0 MCHC 34.9 RDW 13.0 Plt Count 301 MPV 7.0 Neut % (Auto) 55.8 Lymph % (Auto) 32.3 Garrett % (Auto) 8.6 H Eos % (Auto) 2.2 Baso % (Auto) 1.1 Neut # (Auto) 3.8 Lymph # (Auto) 2.2 Garrett # (Auto) 0.6 Eos # (Auto) 0.1 Baso # (Auto) 0.1 WBC Differential . Differential Comment Auto diff final Sodium Potassium Chloride Carbon Dioxide Anion Gap BUN Creatinine Estimated GFR Random Glucose Hemoglobin A1c Calcium Phosphorus Magnesium Total Bilirubin AST ALT Alkaline Phosphatase Total Protein Albumin TSH Free T4 Microbiology 10/15/17 10:35 Blood - Peripheral Aerobic Blood Culture - Preliminary No growth in 1 day 10/15/17 10:35 Blood - Peripheral Anaerobic Blood Culture - Preliminary No growth in 1 day 10/15/17 11:04 Blood - Peripheral Aerobic Blood Culture - Preliminary No growth in 1 day 10/15/17 11:04 Blood - Peripheral Anaerobic Blood Culture - Preliminary No growth in 1 day 10/15/17 10:30 Blood - Peripheral Aerobic Blood Culture - Preliminary No growth in 1 day 10/15/17 10:30 Blood - Peripheral Anaerobic Blood Culture - Preliminary No growth in 1 day 10/14/17 22:12 Clean Catch Urine Urine Culture - Final Proteus mirabilis - Imaging Chest X-Ray 10/14/17 12:51 CONCLUSION: No acute intrathoracic disease. Stable examination of the chest. Assessment and Plan - Assessment (1) Chest pain Code(s): R07.9 - Chest pain, unspecified Status: Acute - Plan Patient is a 52-year-old male with primary medical history of HTN, HLD, depression, CAD with 4 stents who came into the hospital for complaints of chest pain Chest pain rule out ACS -Serial troponin, serial EKG -Dr. Miranda consulted - NO CATH AT THIS TIME -No heparin drip for now, patient was given Plavix -Nitro paste -DC NITROPASTE -Morphine as needed -Place patient on telemetry -Chest x-ray negative, initial EKG reviewed sinus rhythm, negative initial troponin --CHEST PAIN ON 10-16 AND 10-17 TREATED WITH MORPHINE AND NORCO Hydradenitis suppurativa -Start doxycycline twice daily -Continue to monitor Complaints of urinary symptoms -Check UA -POSITIVE UTI - GNR ADD ROCEPHIN-CULTURES STILL PENDING--PROTEUS MIRABILIS- SENSITIVE TO ROCEPHIN HTN HLD CAD, history of stent placement -Continue home medications -Monitor BP trend ???CATH PER CARDIOLOGY DVT prop SCDs AM LABS DW RN AND PT AND CM ADD NITRO PRNS FOR CHEST PAIN Code Status: FULL CODE Discussed Condition With: RN AND PT Discharge Planning: PENDING IMPROVEMENT (1) Chest pain Qualifiers: Chest pain type: unspecified Qualified Code(s): R07.9 - Chest pain, unspecified
[2017-10-17 10:22] LABS: Albumin 3.7 g/dL (3.4-5.0); Anion Gap 10 meq/L (5-15); Aspartate Aminotransferase 16 U/L (15-37); Blood Urea Nitrogen 13 mg/dL (7-18); Calcium 9.6 mg/dL (8.5-10.1); Carbon Dioxide 26.9 meq/L (21.0-32.0); Chloride 103 meq/L (98-107); Glomerular Filtration Rate 87 mL/min (>89); Glucose,Random 134 mg/dL (74-106); Potassium 4.1 meq/L (3.5-5.1); Sodium 140 meq/L (136-145)
[2017-10-17 10:23] LABS: Alanine Aminotransferase 27 U/L (12-78); Phosphorus 3.3 mg/dL (2.5-4.9)
[2017-10-17 10:25] LABS: Alkaline Phosphatase 73 U/L (45-117); Total Protein 7.7 g/dL (6.4-8.2)
--- NOTE | 2017-10-17 19:09 | P.PNCA ---
Subjective Interval history: CHEST PAIN LAST NIGHT RELIEVED BY MORPHINE LITTLE TWINGES TODAY. Physical Exam Vital signs: Vital Signs 10/16/17 20:00 10/16/17 20:58 10/16/17 21:00 Temperature 98.6 F Pulse Rate 78 62 Respiratory Rate 16 16 Blood Pressure 139/86 Pulse Oximetry 96 10/16/17 22:00 10/16/17 23:00 10/16/17 23:35 Temperature Pulse Rate 66 67 70 Respiratory Rate 16 Blood Pressure 135/78 Pulse Oximetry 99 10/17/17 00:00 10/17/17 01:00 10/17/17 02:00 Temperature Pulse Rate 70 68 68 Respiratory Rate Blood Pressure Pulse Oximetry 10/17/17 03:00 10/17/17 04:00 10/17/17 05:00 Temperature Pulse Rate 65 56 L 60 Respiratory Rate Blood Pressure Pulse Oximetry 10/17/17 05:10 10/17/17 06:00 10/17/17 07:00 Temperature Pulse Rate 54 L 60 62 Respiratory Rate 16 Blood Pressure 125/76 Pulse Oximetry 96 10/17/17 07:02 10/17/17 08:00 10/17/17 09:00 Temperature 97.9 F Pulse Rate 61 62 72 Respiratory Rate 16 Blood Pressure 124/75 Pulse Oximetry 97 10/17/17 10:00 10/17/17 11:00 10/17/17 12:00 Temperature 98.3 F Pulse Rate 74 64 62 Respiratory Rate 18 Blood Pressure 130/79 Pulse Oximetry 98 10/17/17 13:00 10/17/17 14:00 10/17/17 16:00 Temperature 98.4 F Pulse Rate 62 66 68 Respiratory Rate 18 Blood Pressure 149/92 H Pulse Oximetry 99 10/17/17 17:00 10/17/17 18:00 Temperature Pulse Rate 70 68 Respiratory Rate Blood Pressure Pulse Oximetry Intake & Output 10/17/17 10/17/17 10/18/17 06:59 18:59 06:59 Intake Total 480 / 480 1200 / 1200 Output Total 500 / 500 1949 Balance -20 / -20 -750 / -750 Weight 93.2 kg Intake: Oral 480 / 480 1200 / 1200 Output: Urine 500 / 500 1949 Other: # Bowel Movements 0 - Constitutional no acute distress - Routine HEENT Exam Head: Present: normocephalic Eye: Present: EOMI, PERRL ENT: Present: mucous membranes moist - Routine Neck Exam Present: supple - Routine Respiratory Exam Present: CTA bilaterally - Routine Cardiovascular Exam Present: RRR - Routine Abdominal Exam Present: soft, normoactive bowel sounds - Routine Skin Exam Present: intact - Routine Neurological Exam Present: alert, oriented X3 - Routine Psychiatric Exam Present: normal affect Assessment and Plan - Plan The exam, history, and the medical decision-making described in the above note were completed with the assistance of the mid-level provider. I reviewed and agree with the findings presented. I attest that I had a [id number] encounter with the patient on the same day, and personally performed and documented my assessment and findings in the medical record. Has multiple symptoms will r/o sepsis. when stable consider cardiac cath. 10/16/2017 MEDICATIONS REVIEWED IV ABX NOTED CARDIAC CATH PER DR. SHE PORTILLO/JOSE. 10/18/19 MEDICATIONS REVIEWED, CONTINUE SAME NPO AFTER MN CATH PER DR NOWAK.
[2017-10-18 08:08] LABS: Baso # (Auto) 0.1 th/mm3 (0.0-0.2); Baso % (Auto) 1.3 % (0.0-2.0); Eos # (Auto) 0.2 th/mm3 (0.0-0.4); Eos % (Auto) 2.3 % (0.0-4.0); Hematocrit 47.2 % (39.0-51.0); Hemoglobin 16.1 gm/dL (13.0-17.0); Lymph # (Auto) 2.7 th/mm3 (1.0-4.8); Lymph % (Auto) 36.7 % (9.0-44.0); Mean Corpuscular HGB Conc 34.2 % (32.0-36.0); Mean Corpuscular Hemoglobin 29.5 pg (27.0-34.0); Mean Corpuscular Volume 86.3 fL (80.0-100.0); Mean Platelet Volume 7.1 fL (7.0-11.0); Mono # (Auto) 0.7 th/mm3 (0.0-0.9); Mono % (Auto) 9.4 % (0.0-8.0); Neut # (Auto) 3.7 th/mm3 (1.8-7.7); Neut % (Auto) 50.3 % (16.0-70.0); Platelet Count 339 th/mm3 (150-450); Red Blood Count 5.47 mil/mm3 (4.50-5.90); Red Cell Distribution Width 13.2 % (11.6-17.2); White Blood Count 7.3 th/mm3 (4.0-11.0)
[2017-10-18 08:26] LABS: Albumin 3.9 g/dL (3.4-5.0); Anion Gap 10 meq/L (5-15); Aspartate Aminotransferase 19 U/L (15-37); Blood Urea Nitrogen 15 mg/dL (7-18); Calcium 9.6 mg/dL (8.5-10.1); Carbon Dioxide 27.4 meq/L (21.0-32.0); Chloride 103 meq/L (98-107); Glomerular Filtration Rate 79 mL/min (>89); Glucose,Random 89 mg/dL (74-106); Potassium 4.2 meq/L (3.5-5.1); Sodium 140 meq/L (136-145)
[2017-10-18 08:28] LABS: Alanine Aminotransferase 35 U/L (12-78); Phosphorus 3.7 mg/dL (2.5-4.9)
[2017-10-18 08:30] LABS: Alkaline Phosphatase 79 U/L (45-117); Total Protein 7.8 g/dL (6.4-8.2)
[2017-10-18] MEDS: Enoxaparin Inj 40 MG/0.4 ML Syringe SQ SCH (09:49)
[2017-10-18] MEDS: predniSONE 20 MG Tablet PO SCH ×2 (09:49→20:42)
[2017-10-18] MEDS: Atenolol 25 MG Tablet PO SCH (09:50)
[2017-10-18] MEDS: Lisinopril 20 MG Tablet PO SCH (09:50)
[2017-10-18] MEDS: Sertraline 50 MG Tablet PO SCH (09:50)
[2017-10-18] MEDS: Famotidine 20 MG Tablet PO SCH ×2 (09:51→20:42)
--- NOTE | 2017-10-18 13:29 | P.PNCA ---
Subjective Interval history: Patient sitting in bed. No cardiac complaints at this time. Reports having a few episodes of minor chest tightness that come at random times, associated with nausea and shooting pain to his left arm and neck. WBC has returned to normal. He denies any pain with urination, continue on ABTs. Cath risks discussed in detail. Risk of , bleeding, stroke, heart attack, etc. reviewed. Pt understands and wishes to proceed. Cath is scheduled for tomorrow. Physical Exam Vital signs: Vital Signs 10/17/17 14:00 10/17/17 16:00 10/17/17 17:00 Temperature 98.4 F Pulse Rate 66 68 70 Respiratory Rate 18 Blood Pressure 149/92 H Pulse Oximetry 99 10/17/17 18:00 10/17/17 19:00 10/17/17 20:00 Temperature 98.4 F Pulse Rate 68 71 65 Respiratory Rate 18 Blood Pressure 148/88 H Pulse Oximetry 98 10/17/17 21:00 10/17/17 22:00 10/17/17 23:00 Temperature Pulse Rate 62 64 66 Respiratory Rate Blood Pressure Pulse Oximetry 10/18/17 00:00 10/18/17 01:00 10/18/17 02:00 Temperature 98.4 F Pulse Rate 65 65 66 Respiratory Rate 18 Blood Pressure 149/81 H Pulse Oximetry 10/18/17 03:00 10/18/17 03:01 10/18/17 04:00 Temperature 97.8 F Pulse Rate 66 65 65 Respiratory Rate Blood Pressure 138/67 Pulse Oximetry 98 10/18/17 05:00 10/18/17 06:00 10/18/17 07:00 Temperature Pulse Rate 67 64 78 Respiratory Rate Blood Pressure Pulse Oximetry 10/18/17 08:00 10/18/17 09:00 10/18/17 10:00 Temperature 98.5 F Pulse Rate 82 84 81 Respiratory Rate 18 Blood Pressure 135/83 Pulse Oximetry 10/18/17 11:00 10/18/17 12:00 10/18/17 13:00 Temperature 98.6 F Pulse Rate 83 81 75 Respiratory Rate 16 Blood Pressure 125/86 Pulse Oximetry Intake & Output 10/17/17 10/18/17 10/18/17 18:59 06:59 18:59 Intake Total 1200 / 1200 340 / 340 Output Total 1950 / 1950 1250 / 1250 Balance -750 / -750 -910 / -910 Weight 93.4 kg Intake: IV 100 / 100 Rocephin Inj 1,000 MG In NS Inj 100 / 100 100 ML @ 200 mls/hr IV.SIG Q24H [facility] Rx#:[id number] Oral 1200 / 1200 240 / 240 Output: Urine 1950 / 1950 1250 / 1250 Other: Date of Last Bowel Movement 10/16/17 - Constitutional no acute distress - Routine HEENT Exam Head: Present: normocephalic, atraumatic Eye: Present: normal accommodation ENT: Present: mucous membranes moist - Routine Neck Exam Present: supple - Routine Respiratory Exam Present: CTA bilaterally - Routine Cardiovascular Exam Present: RRR - Routine Abdominal Exam Present: soft - Routine Extremities Exam Comments: no edema - Routine Skin Exam Present: intact Comments: small round healing red spot under left axilla. - Routine Neurological Exam Present: alert, oriented X3 - Detailed Neurological Exam: Coma Scale Eye Opening: Spontaneous Verbal Response: Oriented Motor Response: Obey commands [place] Coma Scale Total: 15 - Routine Psychiatric Exam Present: normal affect, cooperative Assessment and Plan - Plan Chest pain HTN Skin infection UTI -History of ASHD with multiple stents placed in the past. Continues to have episodes of chest tightness that radiates to arm and neck associated with nausea that occur at random times. Continues on Aspirin, plavix, BB and statin. Pre medication for contrast allergy initiated. Will plan to proceed with heart cath tomorrow. Risks reviewed in detail. -Being followed by infectious disease. On ABTs. WBC has returned to normal. The patient was seen and evaluated by Dr. Miranda who completed [id number] encounter and physical exam and participated in care, management and decision making. Discussed Condition With: Nurse
--- NOTE | 2017-10-18 15:58 | P.PNIM ---
Subjective Interval history: Patient is a 52-year-old male with primary medical history of HTN, HLD, depression, CAD with 4 stents who came into the hospital for complaints of chest pain. Patient states the chest pain has been ongoing since this morning associated with slight nausea, no vomiting, no diaphoresis. Patient states that he woke up with a chest pain this morning. Have chest pain midsternal area radiating towards his neck towards his left jaw all the way radiating to the arms going down from shoulders. States he got some relief with morphine and nitro. States that usually work if he gets a Nitropaste. Patient continues to have pain rated 8/10, radiating towards the neck jaw arm. He denies any shortness of breath or dyspnea, cough, headaches, dizziness, palpitations Patient also reports bilateral armpit infection, states it is MRSA and he was started on clindamycin but he was taken off of it and placed on doxycycline. Discussed with patient will continue with the doxycycline. Patient also complains of burning sensation when he urinates. Reports urgency, frequency. Started yesterday. States he does not have any hematuria, fevers, chills, diarrhea. WBC 14.7, chemistry reviewed within normal. First troponin negative, BNP 10. Chest x-ray showed no acute intrathoracic disease. Stable examination of the chest. 8-3 CARDIAC WORKUP ON HOLD AT THIS TIME COMPLAINS OF HEADACHE AND NAUSEA WILL TREAT BOTH WILL STOP NITROPASTE SHU RN AND PT AND CM 8-4 SEEN BY ID CATH ON HOLD HX OF MRSA HAS GNR UTI AM LABS AWAIT CULTURES DENIES ANY CHEST PAIN DENIES ANY BURNING ON URINATION NOW 8-5 HAD ACTIVE CHEST PAIN LAST NIGHT TREATED WITH MORPHINE AND NORCO SHU RN AND PT AWAIT CARDIAC INPUT FOR TODAY AM LABS CATH LATER THIS WEEK 8-6 TO HAVE CARDIAC CATH TOMORROW HAD SOME CHEST PAIN EARLIER TODAY 2 TO 3 OUT OF 10 SHU RN AND PT AND CM Physical Exam Vital signs: Vital Signs 10/17/17 16:00 10/17/17 17:00 10/17/17 18:00 Temperature 98.4 F Pulse Rate 68 70 68 Respiratory Rate 18 Blood Pressure 149/92 H Pulse Oximetry 99 10/17/17 19:00 10/17/17 20:00 10/17/17 21:00 Temperature 98.4 F Pulse Rate 71 65 62 Respiratory Rate 18 Blood Pressure 148/88 H Pulse Oximetry 98 10/17/17 22:00 10/17/17 23:00 10/18/17 00:00 Temperature 98.4 F Pulse Rate 64 66 65 Respiratory Rate 18 Blood Pressure 149/81 H Pulse Oximetry 10/18/17 01:00 10/18/17 02:00 10/18/17 03:00 Temperature Pulse Rate 65 66 66 Respiratory Rate Blood Pressure Pulse Oximetry 10/18/17 03:01 10/18/17 04:00 10/18/17 05:00 Temperature 97.8 F Pulse Rate 65 65 67 Respiratory Rate Blood Pressure 138/67 Pulse Oximetry 98 10/18/17 06:00 10/18/17 07:00 10/18/17 08:00 Temperature 98.5 F Pulse Rate 64 78 82 Respiratory Rate 18 Blood Pressure 135/83 Pulse Oximetry 10/18/17 09:00 10/18/17 10:00 10/18/17 11:00 Temperature Pulse Rate 84 81 83 Respiratory Rate Blood Pressure Pulse Oximetry 10/18/17 12:00 10/18/17 13:00 10/18/17 14:00 Temperature 98.6 F Pulse Rate 81 75 74 Respiratory Rate 16 Blood Pressure 125/86 Pulse Oximetry 10/18/17 15:00 Temperature Pulse Rate 72 Respiratory Rate Blood Pressure Pulse Oximetry Intake & Output 10/17/17 10/18/17 10/18/17 18:59 06:59 18:59 Intake Total 1200 / 1200 340 / 340 Output Total 1949 1250 / 1250 Balance -750 / -750 -910 / -910 Weight 93.4 kg Intake: IV 100 / 100 Rocephin Inj 1,000 MG In NS Inj 100 / 100 100 ML @ 200 mls/hr IV.SIG Q24H [facility] Rx#:[id number] Oral 1200 / 1200 240 / 240 Output: Urine 1949 1250 / 1250 Other: Date of Last Bowel Movement 10/16/17 Narrative: GENERAL: This is a well-nourished, well-developed patient, in no apparent distress. SKIN: Warm and dry. Bilateral axilla with hidradenitis suppurativa stage I HEENT: Normocephalic. Pupils equal round and reactive. Nose without bleeding. Airway patent. NECK: Trachea midline. Supple. CARDIOVASCULAR: Regular rate and rhythm without murmurs, gallops, or rubs. RESPIRATORY: Clear to auscultation. Breath sounds equal bilaterally. No wheezes , rales, or rhonchi. GASTROINTESTINAL: Abdomen soft, non-tender, nondistended. Bowel Sounds normoactive x4. MUSCULOSKELETAL: Extremities without clubbing, cyanosis, or edema. NEUROLOGICAL: Awake and alert. Oriented to time, place, person. No focal neuro deficit. Moves all extremities. Normal speech. Results - Labs CBC & Chem 7: 10/18/17 07:05 10/18/17 07:05 Laboratory Results - last 24 hr 10/18/17 10/18/17 07:05 07:05 WBC 7.3 RBC 5.47 Hgb 16.1 Hct 47.2 MCV 86.3 MCH 29.5 MCHC 34.2 RDW 13.2 Plt Count 339 MPV 7.1 Neut % (Auto) 50.3 Lymph % (Auto) 36.7 Hand % (Auto) 9.4 H Eos % (Auto) 2.3 Baso % (Auto) 1.3 Neut # (Auto) 3.7 Lymph # (Auto) 2.7 Hand # (Auto) 0.7 Eos # (Auto) 0.2 Baso # (Auto) 0.1 WBC Differential . Differential Comment Auto diff final Sodium 140 Potassium 4.2 Chloride 103 Carbon Dioxide 27.4 Anion Gap 10 BUN 15 Creatinine 0.99 Estimated GFR 79 L Random Glucose 89 Calcium 9.6 Phosphorus 3.7 Magnesium 2.0 Total Bilirubin 0.6 AST 19 ALT 35 Alkaline Phosphatase 79 Total Protein 7.8 Albumin 3.9 Microbiology 10/15/17 10:35 Blood - Peripheral Aerobic Blood Culture - Preliminary No growth in 3 days 10/15/17 10:35 Blood - Peripheral Anaerobic Blood Culture - Preliminary No growth in 3 days 10/15/17 11:04 Blood - Peripheral Aerobic Blood Culture - Preliminary No growth in 3 days 10/15/17 11:04 Blood - Peripheral Anaerobic Blood Culture - Preliminary No growth in 3 days 10/15/17 10:30 Blood - Peripheral Aerobic Blood Culture - Preliminary No growth in 3 days 10/15/17 10:30 Blood - Peripheral Anaerobic Blood Culture - Preliminary No growth in 3 days - Imaging Chest X-Ray 10/14/17 12:51 CONCLUSION: No acute intrathoracic disease. Stable examination of the chest. Assessment and Plan - Assessment (1) Chest pain Code(s): R07.9 - Chest pain, unspecified Status: Acute - Plan Patient is a 52-year-old male with primary medical history of HTN, HLD, depression, CAD with 4 stents who came into the hospital for complaints of chest pain Chest pain rule out ACS -Serial troponin, serial EKG -Dr. Miranda consulted - NO CATH AT THIS TIME -No heparin drip for now, patient was given Plavix -Nitro paste -DC NITROPASTE -Morphine as needed -Place patient on telemetry -Chest x-ray negative, initial EKG reviewed sinus rhythm, negative initial troponin --CHEST PAIN ON 10-16 AND 10-17 TREATED WITH MORPHINE AND NORCO CHEST PAIN AGAIN TODAY 10-18 Hydradenitis suppurativa -Start doxycycline twice daily -Continue to monitor Complaints of urinary symptoms -Check UA -POSITIVE UTI - GNR ADD ROCEPHIN-CULTURES STILL PENDING--PROTEUS MIRABILIS- SENSITIVE TO ROCEPHIN HTN HLD CAD, history of stent placement -Continue home medications -Monitor BP trend ???CATH PER CARDIOLOGY DVT prop SCDs AM LABS DW RN AND PT AND CM ADD NITRO PRNS FOR CHEST PAIN AM LABS Code Status: FULL CODE Discussed Condition With: RN AND PT AND CM Discharge Planning: CARDIAC CATH TOMORROW (1) Chest pain Qualifiers: Chest pain type: unspecified Qualified Code(s): R07.9 - Chest pain, unspecified
[2017-10-18] MEDS: Morphine Inj 4 MG/ML Vial IV.PUSH PRN (17:55)
[2017-10-19] MEDS: Atenolol 25 MG Tablet PO SCH (08:55)
[2017-10-19] MEDS: Famotidine 20 MG Tablet PO SCH ×2 (08:56→20:43)
[2017-10-19] MEDS: Lisinopril 20 MG Tablet PO SCH (08:56)
[2017-10-19] MEDS: Sertraline 50 MG Tablet PO SCH (08:56)
[2017-10-19] MEDS: predniSONE 20 MG Tablet PO SCH (09:15)
[2017-10-19 10:02] LABS: Albumin 4.2 g/dL (3.4-5.0); Anion Gap 11 meq/L (5-15); Aspartate Aminotransferase 18 U/L (15-37); Blood Urea Nitrogen 17 mg/dL (7-18); Calcium 9.8 mg/dL (8.5-10.1); Carbon Dioxide 23.6 meq/L (21.0-32.0); Chloride 105 meq/L (98-107); Glomerular Filtration Rate Greater Than 89 mL/min (>89); Glucose,Random 106 mg/dL (74-106); Magnesium 2.3 mg/dL (1.5-2.5); Potassium 4.1 meq/L (3.5-5.1); Sodium 140 meq/L (136-145)
[2017-10-19 10:07] LABS: Alanine Aminotransferase 39 U/L (12-78); Alkaline Phosphatase 79 U/L (45-117); Total Protein 8.3 g/dL (6.4-8.2)
[2017-10-19] MEDS ORDERED: Heparin/NS PF Inj 1,500 ML ONE (12:46)
[2017-10-19] MEDS ORDERED: fentaNYL Citrate Inj 100 MCG/2 ML Ampul ONE (12:46)
[2017-10-19] MEDS ORDERED: Lidocaine PF 1% Inj 30 ML Vial ONE (12:52)
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
--- NOTE | 2017-10-19 14:54 | MA ---
cc: Kathryn Miranda MD DATE: 10/19/2017 INDICATIONS FOR CATHETERIZATION: Unstable angina, prior history of stent placement. Sedation CONSENT: Full informed consent was obtained prior to the procedure. The risks of , bleeding, myocardial infarction, perforation, aspiration, foreseen and unforeseen complications were reviewed. The patient fully appeared to understand the risks. PROCEDURAL STATEMENT: The patient was draped and prepped. The right femoral artery was entered using a micropuncture technique with ultrasound, via the 4-Albanian sheath, left and right coronary catheters were used to intubate the left and right coronaries. Pigtail catheter used to intubate the left ventricle. Multiple angiographic views were carried out. At the end of the catheterization procedure, all catheters and sheath removed. Manual pressure applied with good hemostasis achieved. The patient was returned to the room in stable condition. FINDINGS: HEMODYNAMICS: Aortic pressure was 113/71, mean of 90. The left ventricular pressure was 112 with a left end diastolic pressure of 16. There was no evidence of gradient on pullback across the LV outflow tract and aortic valve. LEFT VENTRICULOGRAM: Left ventriculogram revealed the overall left ventricular ejection fraction 60%. There was no evidence of significant mitral regurgitation or mural thrombus. CORONARY ARTERIES: The left main showed an ostial 25% stenosis. The left main was otherwise a large vessel. There was evidence of diffuse disease throughout the LAD. The LAD was a large vessel. It had a medium-sized first diagonal branch. There was evidence of a stent going from the first septal construction carpenters helper, jailing the diagonal branch into the LAD, which was widely patent. The circumflex vessel was a medium-sized vessel. There was a small to medium-sized first obtuse marginal branch and small to medium second obtuse marginal branch. There is evidence of a widely patent stent in the mid circumflex jailing the first obtuse marginal branch. The ostium of the first obtuse marginal branch had a 60% stenosis where it was jailed with the stent. There was a tiny intermediate ramus vessel that was nonsignificant. The right coronary artery was a large, dominant artery, was diffusely diseased throughout. In its mid segment, there was a diffuse 40-50% stenosis, just after that was evidence of a plaque, possibly ruptured with evidence of a 25-40% stenosis at its worst. Remainder of the vessel had some mild diffuse disease. It was a very large posterior descending artery and posterolateral branch. CONCLUSION: Evidence of ruptured plaque in the right coronary. Patent stent in the LAD and circumflex, jails obtuse marginal branch and jailed diagonal branch. PLAN: Continue medical management, especially platelet inhibitors given the ruptured plaque in the mid right coronary. MD DAVON Latham/LINDA , 02:03 PM , 02:11 PM KATIE
--- NOTE | 2017-10-19 15:49 | P.PNIM ---
Subjective Interval history: Is feeling well. Denies any chest pain shortness of breath. Physical Exam Vital signs: Vital Signs 10/18/17 16:00 10/18/17 17:00 10/18/17 18:00 Temperature 98.2 F Pulse Rate 81 91 H 70 Respiratory Rate 18 Blood Pressure 144/85 H Pulse Oximetry 99 10/18/17 19:00 10/18/17 20:00 10/18/17 21:00 Temperature 99.4 F Pulse Rate 90 82 88 Respiratory Rate 16 Blood Pressure 138/82 Pulse Oximetry 96 10/18/17 22:00 10/18/17 23:00 10/19/17 00:00 Temperature 98.5 F Pulse Rate 84 82 79 Respiratory Rate 16 Blood Pressure 131/76 Pulse Oximetry 95 10/19/17 01:00 10/19/17 02:00 10/19/17 03:00 Temperature Pulse Rate 100 H 97 H 97 H Respiratory Rate Blood Pressure Pulse Oximetry 10/19/17 04:00 10/19/17 05:00 10/19/17 06:00 Temperature 98.3 F Pulse Rate 97 H 100 H 97 H Respiratory Rate 16 Blood Pressure 143/83 H Pulse Oximetry 97 10/19/17 07:36 10/19/17 07:59 10/19/17 08:00 Temperature 98.1 F 98.1 F Pulse Rate 99 H 102 H 102 H Respiratory Rate 14 14 Blood Pressure 127/74 127/74 Pulse Oximetry 99 99 10/19/17 09:00 10/19/17 10:00 10/19/17 11:00 Temperature Pulse Rate 97 H 92 H 80 Respiratory Rate Blood Pressure Pulse Oximetry 10/19/17 12:00 Temperature 98.4 F Pulse Rate 79 Respiratory Rate 16 Blood Pressure 117/78 Pulse Oximetry 97 Intake & Output 10/18/17 10/19/17 10/19/17 18:59 06:59 18:59 Intake Total 820 / 820 480 / 480 Output Total 1250 / 1250 1100 / 1100 Balance -430 / -430 -620 / -620 Weight 94.7 kg Intake: IV 100 / 100 Rocephin Inj 1,000 MG In NS Inj 100 / 100 100 ML @ 200 mls/hr IV.SIG Q24H NOEMY Rx#:[id number] Oral 720 / 720 480 / 480 Output: Urine 1250 / 1250 1100 / 1100 Other: Date of Last Bowel Movement 10/16/17 # Bowel Movements 0 Narrative: GENERAL: Patient lying in bed. Appears comfortable. SKIN: Warm and dry. HEAD: Normocephalic. EYES: No scleral icterus. No injection or drainage. NECK: Supple, trachea midline. No JVD. CARDIOVASCULAR: Regular rate and rhythm without murmurs, gallops, or rubs. RESPIRATORY: Breath sounds equal bilaterally. No accessory muscle use. GASTROINTESTINAL: Abdomen soft, non-tender, nondistended. MUSCULOSKELETAL: No cyanosis, or edema. BACK: Nontender without obvious deformity. No CVA tenderness. Results - Labs CBC & Chem 7: 10/18/17 07:05 10/19/17 07:58 Laboratory Results - last 24 hr 10/19/17 07:58 Sodium 140 Potassium 4.1 Chloride 105 Carbon Dioxide 23.6 Anion Gap 11 BUN 17 Creatinine 0.85 Estimated GFR Greater than 89 Random Glucose 106 Calcium 9.8 Phosphorus 4.0 Magnesium 2.3 Total Bilirubin 0.4 AST 18 ALT 39 Alkaline Phosphatase 79 Total Protein 8.3 H Albumin 4.2 Microbiology 10/15/17 10:35 Blood - Peripheral Aerobic Blood Culture - Preliminary No growth in 4 days 10/15/17 10:35 Blood - Peripheral Anaerobic Blood Culture - Preliminary No growth in 4 days 10/15/17 11:04 Blood - Peripheral Aerobic Blood Culture - Preliminary No growth in 4 days 10/15/17 11:04 Blood - Peripheral Anaerobic Blood Culture - Preliminary No growth in 4 days 10/15/17 10:30 Blood - Peripheral Aerobic Blood Culture - Preliminary No growth in 4 days 10/15/17 10:30 Blood - Peripheral Anaerobic Blood Culture - Preliminary No growth in 4 days - Procedures NONE Assessment and Plan - Assessment (1) Chest pain Code(s): R07.9 - Chest pain, unspecified Status: Acute - Plan Patient is a 52-year-old male with primary medical history of HTN, HLD, depression, CAD with 4 stents who came into the hospital for complaints of chest pain //Chest pain rule out ACS -Serial troponin, serial EKG -Dr. Miranda consulted - NO CATH AT THIS TIME -No heparin drip for now, patient was given Plavix -Nitro paste -DC NITROPASTE -Morphine as needed -Place patient on telemetry -Chest x-ray negative, initial EKG reviewed sinus rhythm, negative initial troponin --CHEST PAIN ON 10-16 AND 10-17 TREATED WITH MORPHINE AND NORCO CHEST PAIN AGAIN TODAY 10-18 = 10/19. Status post cardiac catheterization with out stenting. Cleared by cardiology for discharge. Will need to stay flat until 9 PM. //Hydradenitis suppurativa -Start doxycycline twice daily -Continue to monitor = Continue doxycycline for 7 more days. Follow with primary care within 1 week. //Call clinic UTI -Check UA -POSITIVE UTI - GNR ADD ROCEPHIN-CULTURES STILL PENDING--PROTEUS MIRABILIS- SENSITIVE TO ROCEPHIN = Cipro at discharge. QTc not elongated. Follow-up with primary care. //HTN //HLD //CAD, history of stent placement -Continue home medications -Monitor BP trend //DVT prop SCDs Discharge Planning: Patient is to stay flat until 9 PM following catheterization. Will plan for discharge tomorrow morning. We will need follow with cardiology and primary care. (1) Chest pain Qualifiers: Chest pain type: unspecified Qualified Code(s): R07.9 - Chest pain, unspecified
--- NOTE | 2017-10-19 15:58 | P.DS ---
Date of admission: 10/14/17 14:52 Primary care physician: [facility] Anticipated date of discharge: 10/20/17 Brief History from admission: Patient is a 52-year-old male with primary medical history of HTN, HLD, depression, CAD with 4 stents who came into the hospital for complaints of chest pain. Patient states the chest pain has been ongoing since this morning associated with slight nausea, no vomiting, no diaphoresis. Patient states that he woke up with a chest pain this morning. Have chest pain midsternal area radiating towards his neck towards his left jaw all the way radiating to the arms going down from shoulders. States he got some relief with morphine and nitro. States that usually work if he gets a Nitropaste. Patient continues to have pain rated 8/10, radiating towards the neck jaw arm. He denies any shortness of breath or dyspnea, cough, headaches, dizziness, palpitations Patient also reports bilateral armpit infection, states it is MRSA and he was started on clindamycin but he was taken off of it and placed on doxycycline. Discussed with patient will continue with the doxycycline. Patient also complains of burning sensation when he urinates. Reports urgency, frequency. Started yesterday. States he does not have any hematuria, fevers, chills, diarrhea. WBC 14.7, chemistry reviewed within normal. First troponin negative, BNP 10. Chest x-ray showed no acute intrathoracic disease. Stable examination of the chest. DS: Diagnosis - Discharge Diagnosis (1) Chest pain Status: Acute DS: Medications - Discharge Medications Prescriptions: atenolol 20 mg PO DAILY 30 Days #24 tab ciprofloxacin HCl [Cipro] 500 mg PO Q12H 7 Days #14 tab clopidogrel [Plavix] 75 mg PO DAILY 30 Days #30 tab doxycycline hyclate 100 mg PO Q12HR #14 cap lisinopril 40 mg PO DAILY 30 Days #30 tab rosuvastatin [Crestor] 40 mg PO DAILY 30 Days #30 tab DS: Summary Hospital Course: Patient was found to have bilateral axillary hidradenitis for which she was started on antibiotics and will continue on doxycycline to complete treatment course. Patient was also found to have UTI secondary to Proteus mirabilis. Patient will be continued on Cipro at discharge. For patient's chest pain, troponins were negative. Patient underwent cardiac catheterization without stenting. Patient will need to follow with cardiology as outpatient For problem based summary from most recent progress note, please see below. Patient is a 52-year-old male with primary medical history of HTN, HLD, depression, CAD with 4 stents who came into the hospital for complaints of chest pain //Chest pain rule out ACS -Serial troponin, serial EKG -Dr. Miranda consulted - NO CATH AT THIS TIME -No heparin drip for now, patient was given Plavix -Nitro paste -DC NITROPASTE -Morphine as needed -Place patient on telemetry -Chest x-ray negative, initial EKG reviewed sinus rhythm, negative initial troponin --CHEST PAIN ON 10-16 AND 10-17 TREATED WITH MORPHINE AND NORCO CHEST PAIN AGAIN TODAY 10-18 = 10/19. Status post cardiac catheterization with out stenting. Cleared by cardiology for discharge. Will need to stay flat until 9 PM. //Hydradenitis suppurativa -Start doxycycline twice daily -Continue to monitor = Continue doxycycline for 7 more days. Follow with primary care within 1 week. //Call clinic UTI -Check UA -POSITIVE UTI - GNR ADD ROCEPHIN-CULTURES STILL PENDING--PROTEUS MIRABILIS- SENSITIVE TO ROCEPHIN = Cipro at discharge. QTc not elongated. Follow-up with primary care. //HTN //HLD //CAD, history of stent placement -Continue home medications -Monitor BP trend //DVT prop SCDs Discharge Planning: Patient is to stay flat until 9 PM following catheterization. Will plan for discharge tomorrow morning. We will need follow with cardiology and primary care. - Time Spent with Patient Total time spent providing and/or coordinating discharge services: Greater than 30 minutes - Quality: VTE Deep Vein Thrombosis/Pulmonary Embolism Present on Admission: No Exam Vital signs: Vital Signs 10/18/17 16:00 10/18/17 17:00 10/18/17 18:00 Temperature 98.2 F Pulse Rate 81 91 H 70 Respiratory Rate 18 Blood Pressure 144/85 H Pulse Oximetry 99 10/18/17 19:00 10/18/17 20:00 10/18/17 21:00 Temperature 99.4 F Pulse Rate 90 82 88 Respiratory Rate 16 Blood Pressure 138/82 Pulse Oximetry 96 10/18/17 22:00 10/18/17 23:00 10/19/17 00:00 Temperature 98.5 F Pulse Rate 84 82 79 Respiratory Rate 16 Blood Pressure 131/76 Pulse Oximetry 95 10/19/17 01:00 10/19/17 02:00 10/19/17 03:00 Temperature Pulse Rate 100 H 97 H 97 H Respiratory Rate Blood Pressure Pulse Oximetry 10/19/17 04:00 10/19/17 05:00 10/19/17 06:00 Temperature 98.3 F Pulse Rate 97 H 100 H 97 H Respiratory Rate 16 Blood Pressure 143/83 H Pulse Oximetry 97 10/19/17 07:36 10/19/17 07:59 10/19/17 08:00 Temperature 98.1 F 98.1 F Pulse Rate 99 H 102 H 102 H Respiratory Rate 14 14 Blood Pressure 127/74 127/74 Pulse Oximetry 99 99 10/19/17 09:00 10/19/17 10:00 10/19/17 11:00 Temperature Pulse Rate 97 H 92 H 80 Respiratory Rate Blood Pressure Pulse Oximetry 10/19/17 12:00 10/19/17 14:30 10/19/17 14:45 Temperature 98.4 F Pulse Rate 79 86 86 Respiratory Rate 16 Blood Pressure 117/78 121/73 Pulse Oximetry 97 96 95 10/19/17 15:00 10/19/17 15:15 10/19/17 15:45 Temperature Pulse Rate 81 84 85 Respiratory Rate Blood Pressure 121/73 130/74 120/74 Pulse Oximetry 95 94 L 96 Intake & Output 10/18/17 10/19/17 10/19/17 18:59 06:59 18:59 Intake Total 820 / 820 480 / 480 Output Total 1250 / 1250 1100 / 1100 Balance -430 / -430 -620 / -620 Weight 94.7 kg Intake: IV 100 / 100 Rocephin Inj 1,000 MG In NS Inj 100 / 100 100 ML @ 200 mls/hr IV.SIG Q24H NOEMY Rx#:[id number] Oral 720 / 720 480 / 480 Output: Urine 1250 / 1250 1100 / 1100 Other: Date of Last Bowel Movement 10/16/17 # Bowel Movements 0 Results Procedures completed during hospitalization: NONE Labs on day of discharge: Labs from last 24 hours 10/19/17 07:58 Sodium 140 Potassium 4.1 Chloride 105 Carbon Dioxide 23.6 Anion Gap 11 BUN 17 Creatinine 0.85 Estimated GFR Greater than 89 Random Glucose 106 Calcium 9.8 Phosphorus 4.0 Magnesium 2.3 Total Bilirubin 0.4 AST 18 ALT 39 Alkaline Phosphatase 79 Total Protein 8.3 H Albumin 4.2 Preliminary micro results at discharge 10/15/17 10:35 Aerobic Blood Culture - Preliminary Blood - Peripheral No growth in 4 days Anaerobic Blood Culture - Preliminary No growth in 4 days 10/15/17 11:04 Aerobic Blood Culture - Preliminary Blood - Peripheral No growth in 4 days Anaerobic Blood Culture - Preliminary No growth in 4 days 10/15/17 10:30 Aerobic Blood Culture - Preliminary Blood - Peripheral No growth in 4 days Anaerobic Blood Culture - Preliminary No growth in 4 days - Impressions ITS Impressions Chest X-Ray 10/14/17 12:51 CONCLUSION: No acute intrathoracic disease. Stable examination of the chest. Discharge Plan - Discharge Disposition Patient Disposition: Discharge Home - Discharge Condition Condition: Good - Discharge Order Discharge Orders: Discharge Order (Routine); Ordered 10/20/17 Ordered By: Jacky Cleary - Discharge Details Anticipated Discharge Date: 10/20/17 - Physicians Team Primary Care Provider: [facility] Attending Provider: Jacky Cleary Other Providers: Kathryn Miranda MD ; Nel Loja MD
[2017-10-19 21:25] LABS: Baso # (Auto) 0.1 th/mm3 (0.0-0.2); Baso % (Auto) 0.4 % (0.0-2.0); Eos % (Auto) 0.1 % (0.0-4.0); Hematocrit 46.1 % (39.0-51.0); Hemoglobin 15.3 gm/dL (13.0-17.0); Lymph # (Auto) 3.4 th/mm3 (1.0-4.8); Lymph % (Auto) 21.1 % (9.0-44.0); Mean Corpuscular HGB Conc 33.1 % (32.0-36.0); Mean Corpuscular Volume 87.7 fL (80.0-100.0); Mean Platelet Volume 6.9 fL (7.0-11.0); Mono # (Auto) 1.5 th/mm3 (0.0-0.9); Mono % (Auto) 9.3 % (0.0-8.0); Neut # (Auto) 11.1 th/mm3 (1.8-7.7); Neut % (Auto) 69.1 % (16.0-70.0); Platelet Count 347 th/mm3 (150-450); Red Blood Count 5.26 mil/mm3 (4.50-5.90); Red Cell Distribution Width 13.4 % (11.6-17.2); White Blood Count 16.1 th/mm3 (4.0-11.0)
[2017-10-19 21:46] LABS: Prothrombin Time 10.2 sec (9.8-11.6)
[2017-10-20] MEDS: Sertraline 50 MG Tablet PO SCH (09:11)
[2017-10-20] MEDS: Atenolol 25 MG Tablet PO SCH (09:11)
[2017-10-20] MEDS: Famotidine 20 MG Tablet PO SCH (09:12)
[2017-10-20] MEDS: Lisinopril 20 MG Tablet PO SCH (09:12)
== END 2017-10-20 09:52 | disposition home or self-care (01) ==
LOC: HCIS 11:36 → NEPE 11:36 → NEDA 11:36 → HCIS 21:20
PROVIDERS: ADMIT Internal Medicine; ATTEND Internal Medicine

== ENCOUNTER 2018-02-27 09:07 | Observation (INO) ==
[2018-02-27] MEDS ORDERED: Morphine Inj 4 MG/ML Vial IV.PUSH ONE (09:47)
--- NOTE | 2018-02-27 10:16 | XR ---
EXAM DATE: 02/27/2018 10:10 AM EST AGE/SEX: 53 years / Male INDICATIONS: Chest pain. CLINICAL DATA: This is the patient's initial encounter. Patient reports that signs and symptoms have been present for 1 day and indicates a pain score of 3/10. MEDICAL/SURGICAL HISTORY: . Chronic obstructive pulmonary disease. Myocardial infarction. . 4 coronary artery stents. . COMPARISON: [facility], CHEST 1V SINGLE AP, 12/03/2017. . FINDINGS: A single AP view of the chest demonstrates the lungs to be symmetrically aerated without evidence of mass, infiltrate or effusion. The cardiomediastinal contours are unremarkable. Osseous structures a re intact. CONCLUSION: Negative examination. Electronically signed by: Shanna Cordero MD Board Certified Radiologist 02/27/2018 10:15 AM E
[2018-02-27 10:22] LABS: Baso # (Auto) 0.1 th/mm3 (0.0-0.2); Baso % (Auto) 0.7 % (0.0-2.0); Eos # (Auto) 0.1 th/mm3 (0.0-0.4); Eos % (Auto) 1.1 % (0.0-4.0); Hematocrit 48.6 % (39.0-51.0); Hemoglobin 16.6 gm/dL (13.0-17.0); Lymph # (Auto) 2.5 th/mm3 (1.0-4.8); Lymph % (Auto) 34.4 % (9.0-44.0); Mean Corpuscular HGB Conc 34.2 % (32.0-36.0); Mean Corpuscular Hemoglobin 30.8 pg (27.0-34.0); Mean Corpuscular Volume 89.9 fL (80.0-100.0); Mono # (Auto) 0.5 th/mm3 (0.0-0.9); Mono % (Auto) 7.3 % (0.0-8.0); Neut # (Auto) 4.2 th/mm3 (1.8-7.7); Neut % (Auto) 56.5 % (16.0-70.0); Platelet Count 322 th/mm3 (150-450); Red Blood Count 5.41 mil/mm3 (4.50-5.90); Red Cell Distribution Width 13.2 % (11.6-17.2); White Blood Count 7.4 th/mm3 (4.0-11.0)
[2018-02-27 10:35] LABS: Amphetamine Screen,Urine Neg (Neg); Barbiturate Screen,Urine Neg (Neg); Cannabinoid Screen,Urine Pos (Neg); Cocaine Screen,Urine Neg (Neg)
[2018-02-27 10:42] LABS: Alanine Aminotransferase 26 U/L (12-78); Albumin 4.2 g/dL (3.4-5.0); Anion Gap 8 meq/L (5-15); Aspartate Aminotransferase 17 U/L (15-37); Blood Urea Nitrogen 14 mg/dL (7-18); Calcium 8.6 mg/dL (8.5-10.1); Carbon Dioxide 23.3 meq/L (21.0-32.0); Chloride 108 meq/L (98-107); Glomerular Filtration Rate 83 mL/min (>89); Glucose,Random 120 mg/dL (74-106); Lipase 88 U/L (73-393); Magnesium 2.1 mg/dL (1.5-2.5); Sodium 139 meq/L (136-145)
[2018-02-27 10:42] LABS: Opiate Screen,Urine Neg (Neg)
[2018-02-27 10:45] LABS: Alkaline Phosphatase 72 U/L (45-117); Total Protein 7.9 g/dL (6.4-8.2)
--- NOTE | 2018-02-27 11:32 | ED ---
HPI General Chief Complaint: Chest Pain Stated Complaint: Chest Pain Time Seen by Provider: 02/27/18 09:41 Source: patient Mode of arrival: EMS Limitations: no limitations History of Present Illness HPI narrative: 53 yo M c/o chest pain, retrosternal with radiation to LUE. Pain is severe at times. Exertional component. No dyspnea. + Hx CAD with cath done approx 4 months prior revealing possible ruptured plaque alogn the right coronary artery. Multiple vessel disease was observed. No stent was placed. Investigation Manager is Dr Miranda. Pt reports compliance with Plavix and aspirin. + Personal stress over past few days. Duration chest pain approx 4 days. Related Data Home Medications Medication Instructions Recorded Confirmed aspirin 81 mg PO DAILY 10/14/17 02/27/18 ranitidine HCl [Zantac] 150 mg PO BID 10/14/17 02/27/18 atenolol 50 mg PO DAILY 12/03/17 02/27/18 cholecalciferol (vitamin D3) 1,000 unit PO DAILY 12/03/17 02/27/18 [Vitamin D3] clopidogrel [Plavix] 75 mg PO DAILY 12/03/17 02/27/18 lisinopril 40 mg PO DAILY 12/03/17 02/27/18 rosuvastatin [Crestor] 40 mg PO DAILY 12/03/17 02/27/18 Allergies Allergy/AdvReac Type Severity Reaction Status Date / Time iodine Allergy Severe Anaphylaxis Verified 02/27/18 09:30 Sulfa (Sulfonamide Allergy Severe Vomiting Verified 02/27/18 09:30 Antibiotics) shellfish derived Allergy Unknown Anaphylaxis Verified 02/27/18 09:30 Review of Systems ROS: all other systems reviewed are negative [facility] Medical History Medical History UTI (urinary tract infection) (Acute) Hidradenitis suppurativa (Acute) Depression (Acute) CAD (coronary artery disease) (Acute) HLD (hyperlipidemia) (Acute) HTN (hypertension) (Acute) Hepatitis B (Acute) Anxiety (Acute) Elevated cholesterol (Acute) GERD (gastroesophageal reflux disease) (Acute) PTSD (post-traumatic stress disorder) (Acute) Past heart attack (Acute) Surgical History Surgical History S/P coronary artery stent placement (Acute) Hx of cardiac cath (Acute) Social History Social History Substance History: No History of Abuse Second Hand Smoke Exposure: No Smoking Status: Former smoker Tobacco Type: Cigarettes How Often Do You Have a Drink Containing Alcohol: Never Hx Recent Travel: No Recent Travel in [facility] within the Last 8 Weeks: No Recent Out of Country Travel within the Last 8 Weeks: No Immunization History Tetanus Immunization: <5 Years Exam Narrative Exam Narrative: GENERAL: 53 yo M, WNWD, mild distress 2/2 pain/anxiety SKIN: Focused skin assessment warm/dry. HEAD: Atraumatic. Normocephalic. EYES: Pupils equal and round. No scleral icterus. No injection or drainage. ENT: No nasal bleeding or discharge. Mucous membranes pink and moist. NECK: Trachea midline. No JVD. CARDIOVASCULAR: Regular rate and rhythm. No murmur appreciated. RESPIRATORY: No accessory muscle use. Clear to auscultation. Breath sounds equal bilaterally. GASTROINTESTINAL: Abdomen soft, non-tender, nondistended. Hepatic and splenic margins not palpable. MUSCULOSKELETAL: No obvious deformities. No clubbing. No cyanosis. No edema. NEUROLOGICAL: Awake and alert. No obvious cranial nerve deficits. Motor grossly within normal limits. Normal speech. PSYCHIATRIC: Appropriate mood and affect; insight and judgment normal. Course Initial Documented Vital Signs Pulse Rate 88 02/27/18 09:33 Respiratory Rate 16 02/27/18 09:33 Blood Pressure 175/105 H 02/27/18 09:33 Pulse Oximetry 95 02/27/18 09:33 Last Documented Vital Signs Pulse Rate 83 02/27/18 11:07 Respiratory Rate 17 02/27/18 11:07 Blood Pressure 175/96 H 02/27/18 11:07 Pulse Oximetry 95 02/27/18 11:07 Medical Decision Making [facility] Narrative Medical decision making narrative: Tn < 0.02 EKG sinus rate 81, normal axis/intervals, no acute ischemia CXR shows no acute disease CBC CMP normal Pt received brant and morphine here with decreased pain [employer] protocol considered reasonable next step for this patient Pt agreeable with plan Medical Screen Exam Complete: Yes Emergency Medical Condition: Yes Differential Diagnosis Differential Diagnosis: NSTEMI, unstable angina, coronary vasospasm, PE, PTX, aortic dissection, pericarditis, myocarditis, endocarditis, PNA, esophageal disease, aneurysm, musculoskeletal etiologies, anxiety, cocaine/sympathomimetic abuse Lab Data Lab results reviewed: Yes I reviewed the patient's lab results. Result diagrams: 02/27/18 09:56 02/27/18 09:56 Lab Results 02/27/18 02/27/18 02/27/18 Range/Units 09:56 09:56 10:11 WBC 7.4 (4.0-11.0) th/mm3 RBC 5.41 (4.50-5.90) mil/mm3 Hgb 16.6 (13.0-17.0) gm/dL Hct 48.6 (39.0-51.0) % MCV 89.9 (80.0-100.0) fL MCH 30.8 (27.0-34.0) pg MCHC 34.2 (32.0-36.0) % RDW 13.2 (11.6-17.2) % Plt Count 322 (150-450) th/mm3 MPV 7.0 (7.0-11.0) fL Neut % (Auto) 56.5 (16.0-70.0) % Lymph % (Auto) 34.4 (9.0-44.0) % [place] % (Auto) 7.3 (0.0-8.0) % Eos % (Auto) 1.1 (0.0-4.0) % Baso % (Auto) 0.7 (0.0-2.0) % Neut # (Auto) 4.2 (1.8-7.7) th/mm3 Lymph # (Auto) 2.5 (1.0-4.8) th/mm3 [place] # (Auto) 0.5 (0.0-0.9) th/mm3 Eos # (Auto) 0.1 (0.0-0.4) th/mm3 Baso # (Auto) 0.1 (0.0-0.2) th/mm3 WBC Differential . Differential Comment Auto diff final Sodium 139 (136-145) meq/L Potassium 4.0 (3.5-5.1) meq/L Chloride 108 H (98-107) meq/L Carbon Dioxide 23.3 (21.0-32.0) meq/L Anion Gap 8 (5-15) meq/L BUN 14 (7-18) mg/dL Creatinine 0.95 (0.60-1.30) mg/dL Estimated GFR 83 L (>89) mL/min Random Glucose 120 H (74-106) mg/dL Calcium 8.6 (8.5-10.1) mg/dL Magnesium 2.1 (1.5-2.5) mg/dL Total Bilirubin 0.6 (0.2-1.0) mg/dL AST 17 (15-37) U/L ALT 26 (12-78) U/L Alkaline Phosphatase 72 (45-117) U/L Troponin I Less than 0.02 L (0.02-0.05) ng/mL Total Protein 7.9 (6.4-8.2) g/dL Albumin 4.2 (3.4-5.0) g/dL Lipase 88 (73-393) U/L Urine Opiates Screen Neg (Neg) Ur Barbiturates Screen Neg (Neg) Ur Amphetamines Screen Neg (Neg) U Benzodiazepines Scrn Neg (Neg) Urine Cocaine Screen Neg (Neg) U Cannabinoids Screen Pos H (Neg) Serum Alcohol Less than 3 (0-5) mg/dL Imaging Data Radiologist's impression: Chest X-Ray 02/27/18 09:47 CONCLUSION: Negative examination. Discharge Plan Discharge Disposition Patient Disposition: ED Admit(ED Internal Use Only) Discharge Order Discharge Orders: ED Use Only Admit Order (Routine); Ordered 02/27/18 Ordered By: David Blake Physicians Team ED Provider: David Blake Primary Care Provider: [facility]ician [facility] /Orders / Referrals /Forms Prescriptions: No Action ranitidine HCl [Zantac] 150 mg Tablet 150 mg PO BID RF: 0 aspirin 81 mg Tablet,Chewable 81 mg PO DAILY RF: 0 clopidogrel [Plavix] 75 mg Tablet 75 mg PO DAILY RF: 0 lisinopril 40 mg Tablet 40 mg PO DAILY RF: 0 atenolol 25 mg Tablet 50 mg PO DAILY RF: 0 cholecalciferol (vitamin D3) [Vitamin D3] 1,000 unit Capsule 1,000 unit PO DAILY RF: 0 rosuvastatin [Crestor] 40 mg Tablet 40 mg PO DAILY RF: 0 Discharge Instructions Patient Printed Instructions: Chest Pain (ED) Discharge Interventions Interventions: Vital Signs Last Done: 02/27/18 09:33 Status ED Status: With Doctor
[2018-02-27] MEDS ORDERED: Sod Chloride 0.9% Inj 1,000 ML IV.SIG SCH (12:30)
[2018-02-27 14:36] LABS: Creatine Kinase 72 U/L (39-308)
--- NOTE | 2018-02-27 14:46 | P.PNCA ---
Subjective Interval history: 53-year-old [facility] patient evaluated by the nurse practitioner and presented. The patient was then seen and examined by me personally and we discussed further evaluation and treatment. Essentially he is a 53-year-old with heavy psych history including PTSD and depression but also with a known history of coronary artery disease. He has multiple stents and a recent catheterization carried out by Dr. Gonzalez documents small vessel disease that will require medical management rather than further intervention. His current presentation appears to have been precipitated by high level of personal stress. His presentation is well documented in the nurse practitioner's notes. It appears likely that his current chest pain is ischemic but will require medical management. An attempt will be made to stabilize him, relieve his pain, and consider further adjustment of medication. Additional interventional testing however will not be carried out at this time. If he cannot be stabilized Dr. Gonzalez will be consulted for further instructions. Medications and Allergies Active Medications: Active Medications Aspirin (Aspirin Chew) 81 mg PO DAILY ONEMY Atenolol (Tenormin) 25 mg PO DAILY NOEMY Atorvastatin Calcium (Lipitor) 80 mg PO DAILY NOEMY Clopidogrel Bisulfate (Plavix) 75 mg PO DAILY NOEMY Famotidine (Pepcid) 20 mg PO BID NOEMY Lisinopril (Prinivil) 40 mg PO DAILY NOEMY Sodium Chloride (Ns Flush) 2 ml IV.FLUSH BID NOEMY Sodium Chloride (Ns Flush) 2 ml IV.FLUSH PRN PRN PRN Reason: FLUSH AFTER USING IV ACCESS Vitamin D (Vitamin D3) 1,000 unit PO DAILY NOEMY Allergies Allergy/AdvReac Type Severity Reaction Status Date / Time iodine Allergy Severe Anaphylaxis Verified 02/27/18 09:30 Sulfa (Sulfonamide Allergy Severe Vomiting Verified 02/27/18 09:30 Antibiotics) shellfish derived Allergy Unknown Anaphylaxis Verified 02/27/18 09:30 Home Medications Medication Instructions Recorded Confirmed Type aspirin 81 mg PO DAILY 10/14/17 02/27/18 History ranitidine HCl [Zantac] 150 mg PO BID 10/14/17 02/27/18 History atenolol 50 mg PO DAILY 12/03/17 02/27/18 History cholecalciferol (vitamin D3) 1,000 unit PO DAILY 12/03/17 02/27/18 History [Vitamin D3] clopidogrel [Plavix] 75 mg PO DAILY 09/21/18 12/16/18 History lisinopril 40 mg PO DAILY 12/03/17 02/27/18 History rosuvastatin [Crestor] 40 mg PO DAILY 12/03/17 02/27/18 History Physical Exam Vital signs: Vital Signs 02/27/18 09:33 02/27/18 10:15 02/27/18 11:07 Pulse Rate 88 100 H 83 Respiratory Rate 16 15 17 Blood Pressure 175/105 H 175/94 H 175/96 H Pulse Oximetry 95 95 95 02/27/18 12:00 02/27/18 13:55 Pulse Rate 96 H 78 Respiratory Rate 16 Blood Pressure 156/95 H 136/79 Pulse Oximetry 95 98 Intake & Output 02/26/18 02/27/18 02/27/18 18:59 06:59 18:59 Intake Total 1000 / 1000 Balance 1000 / 1000 Weight 104.326 kg Intake: IV 1000 / 1000 NS Inj 1,000 ML @ 1000 mls/hr 1000 / 1000 IV.SIG BOLUS NOEMY Rx#:[id number] Narrative: Well-nourished well-developed male complaining of chest pain but appears to be resting reasonably comfortably Skin warm and dry Head normocephalic atraumatic Eyes PERRLA EOMI sclera clear Neck supple no JVD masses nodes or bruits Chest clear to auscultation with no rales wheezes or rhonchi Cardiovascular the rhythm is regular there are no gallops rubs or murmurs Abdomen soft nontender no guarding or rebound Results 02/27/18 09:56 02/27/18 09:56 Cardiac Enzymes 02/27/18 02/27/18 Range/Units 09:56 13:40 AST 17 (15-37) U/L Troponin I Less than 0.02 L Less than 0.02 L (0.02-0.05) ng/mL CBC 02/27/18 Range/Units 09:56 WBC 7.4 (4.0-11.0) th/mm3 RBC 5.41 (4.50-5.90) mil/mm3 Hgb 16.6 (13.0-17.0) gm/dL Hct 48.6 (39.0-51.0) % Plt Count 322 (150-450) th/mm3 Neut # (Auto) 4.2 (1.8-7.7) th/mm3 Lymph # (Auto) 2.5 (1.0-4.8) th/mm3 [place] # (Auto) 0.5 (0.0-0.9) th/mm3 Eos # (Auto) 0.1 (0.0-0.4) th/mm3 Baso # (Auto) 0.1 (0.0-0.2) th/mm3 Comprehensive Metabolic Panel 02/27/18 Range/Units 09:56 Sodium 139 (136-145) meq/L Potassium 4.0 (3.5-5.1) meq/L Chloride 108 H (98-107) meq/L Carbon Dioxide 23.3 (21.0-32.0) meq/L BUN 14 (7-18) mg/dL Creatinine 0.95 (0.60-1.30) mg/dL Calcium 8.6 (8.5-10.1) mg/dL AST 17 (15-37) U/L ALT 26 (12-78) U/L Alkaline Phosphatase 72 (45-117) U/L Total Protein 7.9 (6.4-8.2) g/dL Albumin 4.2 (3.4-5.0) g/dL Intake and Output 02/26/18 02/27/18 02/27/18 22:59 06:59 14:59 Intake Total 1000 / 1000 Balance 1000 / 1000 Intake: IV 1000 / 1000 NS Inj 1,000 ML @ 1000 mls/hr 1000 / 1000 IV.SIG BOLUS NOEMY Rx#:[id number] Other: Weight 104.326 kg Patient Weight 02/28/18 06:59 Weight 104.326 kg - Imaging and Cardiology Imaging: Impressions Chest X-Ray 02/27/18 09:47 CONCLUSION: Negative examination. Assessment and Plan - Plan Attempt will be made to stabilize the patient using nitrates but with additional medications if necessary. If he cannot be stabilized Dr. Gonzalez will be contacted for further instructions or consideration of admission. If he stabilizes he will be discharged for further follow-up on outpatient basis as scheduled.
--- NOTE | 2018-02-27 15:04 | P.HPCA ---
History of Present Illness Primary Care Physician: Physician [facility] Chief Complaint: Chest pain History of Present Illness: 53 year old male with history of CAD, x4 cardiac stents, and hypertension presents to ER for further evaluation of chest pain. States over the last 4-5 days his "normal angina" becoming more severe. Location left anterior chest. Characterized as intense feeling of "being slapped." Pain radiates to left jaw and down left arm. Moderate to severe in severity. Associated symptoms include nausea, dyspnea, and diaphoresis. No precipitating factors. Relieving factors usually Nitro SL decreases discomfort fairly quickly, but not fully subsiding. Regularly takes Nitro SL at least once daily due to angina. Reports having 6 small blockages being medically managed. Unable to tolerate long acting nitrate due to migraines, also tried nitro patch but needed to stop due to migraine headaches. Past cardiac testing 10/19/2017 Cardiac catheterization ([facility]) Conclusion: Evidence of ruptured plaque in right coronary. Patent stent in LAD and circumflex, jails obtuse marginal branch and jailed diagonal branch. Reports 6 cardiac catheterization, 4 cardiac stents, and 2 MIs Social history Known CAD, hypertension, and hyperlipidemia. No known diabetes. Former 60+ pack year history of smoking. Quit alcohol 1991. Occasionally with smoke marijuana. Family history Father age 49 from CVA. - Diagnosis (1) Unstable angina (2) CAD (coronary artery disease) Review of Systems All other systems reviewed negative except as stated in HPI [facility] - History History Provided By: Patient, Carpet Jack / EMT - Medical History Medical History: Medical History (Last Reviewed 02/27/18 @ 15:04 by HANDY Cosby) UTI (urinary tract infection) (Acute) Hidradenitis suppurativa (Acute) Depression (Acute) CAD (coronary artery disease) (Chronic) HTN (hypertension) (Acute) Hepatitis B Anxiety Elevated cholesterol GERD (gastroesophageal reflux disease) PTSD (post-traumatic stress disorder) Past heart attack - Surgical History Surgical History: Surgical History (Last Reviewed 02/27/18 @ 15:04 by HANDY Cosby) S/P coronary artery stent placement (Acute) Hx of cardiac cath - Family History Family History: Family History (Last Reviewed 02/27/18 @ 15:04 by HANDY Cosby) Father Stroke Mother Diabetes History of permanent cardiac pacemaker placement - Tobacco History Second Hand Smoke Exposure: No Smoking Status: Former smoker (quit 2016) Tobacco Type: Cigarettes Number of Pack Years (if former smoker): 60 - Alcohol History How Often Do You Have a Drink Containing Alcohol: Never - Substance Use History Substance History: No History of Abuse - Travel History History of Recent Travel: No Recent Travel in the [place] Within the Last 8 Weeks: No Recent Travel Out of the Country Within the Last 8 Weeks: No - Immunization History Tetanus Immunization: <5 Years Medications and Allergies Active Medications: Active Medications Aspirin (Aspirin Chew) 81 mg PO DAILY NOEMY Atenolol (Tenormin) 25 mg PO DAILY NOEMY Atorvastatin Calcium (Lipitor) 80 mg PO DAILY NOEMY Clopidogrel Bisulfate (Plavix) 75 mg PO DAILY NOEMY Famotidine (Pepcid) 20 mg PO BID NOEMY Lisinopril (Prinivil) 40 mg PO DAILY NOEMY Sodium Chloride (Ns Flush) 2 ml IV.FLUSH BID NOEMY Sodium Chloride (Ns Flush) 2 ml IV.FLUSH PRN PRN PRN Reason: FLUSH AFTER USING IV ACCESS Vitamin D (Vitamin D3) 1,000 unit PO DAILY NOEMY Allergies Allergy/AdvReac Type Severity Reaction Status Date / Time iodine Allergy Severe Anaphylaxis Verified 02/27/18 09:30 Sulfa (Sulfonamide Allergy Severe Vomiting Verified 02/27/18 09:30 Antibiotics) shellfish derived Allergy Unknown Anaphylaxis Verified 02/27/18 09:30 Home Medications Medication Instructions Recorded Confirmed Type aspirin 81 mg PO DAILY 10/14/17 02/27/18 History ranitidine HCl [Zantac] 150 mg PO BID 10/14/17 02/27/18 History atenolol 25 mg PO BID 12/03/17 02/27/18 History cholecalciferol (vitamin D3) 1,000 unit PO DAILY 12/03/17 02/27/18 History [Vitamin D3] clopidogrel [Plavix] 75 mg PO DAILY 12/03/17 02/27/18 History lisinopril 40 mg PO DAILY 12/03/17 02/27/18 History rosuvastatin [Crestor] 40 mg PO DAILY 12/03/17 02/27/18 History Exam Vital signs: Vital Signs 02/27/18 09:33 02/27/18 10:15 02/27/18 11:07 Pulse Rate 88 100 H 83 Respiratory Rate 16 15 17 Blood Pressure 175/105 H 175/94 H 175/96 H Pulse Oximetry 95 95 95 02/27/18 12:00 02/27/18 13:55 Pulse Rate 96 H 78 Respiratory Rate 16 Blood Pressure 156/95 H 136/79 Pulse Oximetry 95 98 Intake & Output 02/26/18 02/27/18 02/27/18 18:59 06:59 18:59 Intake Total 1000 / 1000 Balance 1000 / 1000 Weight 104.326 kg Intake: IV 1000 / 1000 NS Inj 1,000 ML @ 1000 mls/hr 1000 / 1000 IV.SIG BOLUS NOEMY Rx#:[id number] Narrative: GENERAL: Alert WN, WD, NAD, pleasant, male who appears older than stated age HEAD: NC, AT EYES: Sclera clear, conjunctiva without injection, pupils equal and round ENT: Mucous membranes pink and moist, no nasal discharge or bleeding NECK: Supple, no masses, trachea midline CV: RRR, without murmur, rub, gallop, no JVD, S1-S2. Chest wall nontender to palpation. RESP: Clear lungs throughout bilateral, no crackles, wheeze, rhonchi, symmetrical chest rise, nonlabored, able to speak in full sentences ABD: Soft, NT, ND, no masses, positive bowel tones EXT: Pulses +2x4, no dependent edema MS: Normal tone x4 extremities, nontender, no obvious deformities, full range of motion NEURO: Motor strength 5/5 PSYCH: A+O x3, pleasant affect, appropriate speech, mood, insight and judgment SKIN: Normal turgor, normal texture, no lesions, no rashes, brisk cap refill, even hair distribution, tattoos Results 02/27/18 09:56 02/27/18 09:56 Cardiac Enzymes 02/27/18 02/27/18 Range/Units 09:56 13:40 AST 17 (15-37) U/L Troponin I Less than 0.02 L Less than 0.02 L (0.02-0.05) ng/mL CBC 02/27/18 Range/Units 09:56 WBC 7.4 (4.0-11.0) th/mm3 RBC 5.41 (4.50-5.90) mil/mm3 Hgb 16.6 (13.0-17.0) gm/dL Hct 48.6 (39.0-51.0) % Plt Count 322 (150-450) th/mm3 Neut # (Auto) 4.2 (1.8-7.7) th/mm3 Lymph # (Auto) 2.5 (1.0-4.8) th/mm3 [place] # (Auto) 0.5 (0.0-0.9) th/mm3 Eos # (Auto) 0.1 (0.0-0.4) th/mm3 Baso # (Auto) 0.1 (0.0-0.2) th/mm3 Comprehensive Metabolic Panel 02/27/18 Range/Units 09:56 Sodium 139 (136-145) meq/L Potassium 4.0 (3.5-5.1) meq/L Chloride 108 H (98-107) meq/L Carbon Dioxide 23.3 (21.0-32.0) meq/L BUN 14 (7-18) mg/dL Creatinine 0.95 (0.60-1.30) mg/dL Calcium 8.6 (8.5-10.1) mg/dL AST 17 (15-37) U/L ALT 26 (12-78) U/L Alkaline Phosphatase 72 (45-117) U/L Total Protein 7.9 (6.4-8.2) g/dL Albumin 4.2 (3.4-5.0) g/dL Intake and Output 02/26/18 02/27/18 02/27/18 22:59 06:59 14:59 Intake Total 1000 / 1000 Balance 1000 / 1000 Intake: IV 1000 / 1000 NS Inj 1,000 ML @ 1000 mls/hr 1000 / 1000 IV.SIG BOLUS NOEMY Rx#:[id number] Other: Weight 104.326 kg Patient Weight 02/28/18 06:59 Weight 104.326 kg - Imaging and Cardiology Imaging: Impressions Chest X-Ray 02/27/18 09:47 CONCLUSION: Negative examination. EKG interpretations - EKG EKG results cardiology: sinus rhythm, normal axis, normal QRS, normal ST/T Caprini VTE Risk Assessment Caprini VTE Risk Assessment: No/Low Risk (score <= 1) Caprini Risk Assessment Model: Point Value = 1 Point Value = 2 Point Value = 3 Point Value = 5 Age 41-60 Minor surgery BMI > 25 kg/m2 Swollen legs Varicose veins or History of unexplained or recurrent spontaneous Oral contraceptives or hormone replacement Sepsis (< 1 month) Serious lung disease, including pneumonia (< 1 month) Abnormal pulmonary function Acute myocardial infarction Congestive heart failure (< 1 month) History of inflammatory bowel disease Medical patient at bed rest Age 61-74 Arthroscopic surgery Major open surgery (> 45 min) Laparoscopic surgery (> 45 min) Malignancy Confined to bed (> 72 hours) Immobilizing plaster cast Central venous access Age >= 75 History of VTE Family history of VTE Factor V Leiden Prothrombin [id number] Lupus anticoagulant Anticardiolipin antibodies Elevated serum homocysteine Heparin-induced thrombocytopenia Other congenital or acquired thrombophilia Stroke (< 1 month) Elective arthroplasty Hip, pelvis, or leg fracture Acute spinal cord injury (< 1 month) Prophylaxis Regimen: Total Risk Factor Score Risk Level Prophylaxis Regimen 0-1 Low Early ambulation 2 Moderate Order ONE of the following: *Sequential Compression Device (SCD) *Heparin 5000 units SQ BID 3-4 Higher Order ONE of the following medications: *Heparin 5000 units SQ TID *Enoxaparin/Lovenox 40 mg SQ daily (WT < 150 kg, CrCl > 30 mL/min) *Enoxaparin/Lovenox 30 mg SQ daily (WT < 150 kg, CrCl > 10-29 mL/min) *Enoxaparin/Lovenox 30 mg SQ BID (WT < 150 kg, CrCl > 30 mL/min) AND/OR *Sequential Compression Device (SCD) 5 or more Highest Order ONE of the following medications: *Heparin 5000 units SQ TID (Preferred with Epidurals) *Enoxaparin/Lovenox 40 mg SQ daily (WT < 150 kg, CrCl > 30 mL/min) *Enoxaparin/Lovenox 30 mg SQ daily (WT < 150 kg, CrCl > 10-29 mL/min) *Enoxaparin/Lovenox 30 mg SQ BID (WT < 150 kg, CrCl > 30 mL/min) AND *Sequential Compression Device (SCD) Assessment and Plan - Assessment (1) Unstable angina Code(s): I20.0 - Unstable angina Status: Acute Plan: Admitted to chest pain center. Rule out ACS with 3 sets of EKGs and cardiac enzymes. Seen and evaluated by Dr. Nikolas Feliz. Known small vessel disease. Nitro SL x1 dose now. Patient does not tolerating nitro paste due to migraine headaches. Plan to provide chest pain relief. 1510 Dr. Feliz spoke with Dr. Miranda. Due to known small vessel disease and inability to place on long acting nitrate, plan to double current beta oz dosing in hopes of providing pain relief. Currently taking atenolol 25 mg daily , will increase to BID. Monitor overnight, plan to discharge home in morning and follow up with Dr. Miranda. (2) CAD (coronary artery disease) Code(s): I25.10 - Atherosclerotic heart disease of [place] coronary artery without angina pectoris Status: Chronic Plan: Continue aspirin, atenolol, clopidogrel, and rosuvastatin. - Plan Attempt will be made to stabilize the patient using nitrates but with additional medications if necessary. If he cannot be stabilized Dr. Gonzalez will be contacted for further instructions or consideration of admission. If he stabilizes he will be discharged for further follow-up on outpatient basis as scheduled. (2) CAD (coronary artery disease) Qualifiers: Associated angina: angina presence unspecified
[2018-02-27 17:00] LABS: Creatine Kinase 78 U/L (39-308)
[2018-02-27] MEDS: Atenolol 50 MG Tablet PO SCH (17:54)
[2018-02-27 20:18] VITALS: RESP 18
[2018-02-27] MEDS ORDERED: Morphine Sulfate Inj 2 MG/ML Vial IV.PUSH PRN (20:37)
[2018-02-27] MEDS ORDERED: Acetaminophen 325 MG Tablet PO PRN (20:38)
[2018-02-27] MEDS: Famotidine 20 MG Tablet PO SCH (21:04)
--- NOTE | 2018-02-28 07:28 | ECG ---
Date Performed: 02/27/2018 Time Performed: 16:20:21 PTAGE: 53 years EKG: Sinus rhythm NORMAL ECG PREVIOUS TRACING : 02/27/2018 13.14 Since previous tracing, no significant change noted DOCTOR: Parag Granda Interpretating Date/Time 02/28/2018 07:26:12
--- NOTE | 2018-02-28 07:29 | ECG ---
Date Performed: 02/27/2018 Time Performed: 09:30:51 PTAGE: 53 years EKG: Sinus rhythm POSSIBLE LEFT ATRIAL ENLARGEMENT BORDERLINE ECG INTERPRETATION BASED ON A DEFAULT AGE OF 40 YEARS PREVIOUS TRACING : 12/03/2017 17.43 Since previous tracing, no significant change noted DOCTOR: Parag Granda Interpretating Date/Time 02/28/2018 07:27:31
--- NOTE | 2018-02-28 07:29 | ECG ---
Date Performed: 02/27/2018 Time Performed: 13:14:17 PTAGE: 53 years EKG: Sinus rhythm POSSIBLE LEFT ATRIAL ENLARGEMENT BORDERLINE ECG PREVIOUS TRACING : 02/27/2018 09.30 Since previous tracing, no significant change noted DOCTOR: Parag Granda Interpretating Date/Time 02/28/2018 07:27:03
[2018-02-28 07:38] VITALS: BP 130/79; TEMP 98.1
--- NOTE | 2018-02-28 07:56 | P.PNCA ---
Subjective Interval history: Offers no complaint. Denies any type of chest discomfort. Medications and Allergies Active Medications: Active Medications Acetaminophen (Tylenol) 650 mg PO Q4H PRN PRN Reason: PAIN SCALE LESS THAN 5 Aspirin (Aspirin Chew) 81 mg PO DAILY [facility] Atenolol (Tenormin) 50 mg PO DAILY [facility] Last Admin: 02/27/18 17:54 Dose: 50 mg Atorvastatin Calcium (Lipitor) 80 mg PO DAILY [facility] Clopidogrel Bisulfate (Plavix) 75 mg PO DAILY [facility] Famotidine (Pepcid) 20 mg PO BID [facility] Last Admin: 02/27/18 21:04 Dose: 20 mg Lisinopril (Prinivil) 40 mg PO DAILY [facility] Morphine Sulfate (Morphine Inj) 2 mg IV.PUSH Q4H PRN PRN Reason: PAIN SCALE GREATER THAN 5 Last Admin: 02/27/18 21:04 Dose: 2 mg Ondansetron HCl (Zofran Inj) 4 mg IV.PUSH Q6H PRN PRN Reason: NAUSEA OR VOMITING Last Admin: 02/27/18 17:54 Dose: 4 mg Sodium Chloride (Ns Flush) 2 ml IV.FLUSH BID [facility] Last Admin: 02/27/18 21:05 Dose: 2 ml Sodium Chloride (Ns Flush) 2 ml IV.FLUSH PRN PRN PRN Reason: FLUSH AFTER USING IV ACCESS Vitamin D (Vitamin D3) 1,000 unit PO DAILY [facility] Allergies Allergy/AdvReac Type Severity Reaction Status Date / Time iodine Allergy Severe Anaphylaxis Verified 02/27/18 09:30 Sulfa (Sulfonamide Allergy Severe Vomiting Verified 02/27/18 09:30 Antibiotics) shellfish derived Allergy Unknown Anaphylaxis Verified 02/27/18 09:30 Home Medications Medication Instructions Recorded Confirmed Type aspirin 81 mg PO DAILY 10/14/17 02/27/18 History ranitidine HCl [Zantac] 150 mg PO BID 10/14/17 02/27/18 History atenolol 25 mg PO BID 12/03/17 02/27/18 History cholecalciferol (vitamin D3) 1,000 unit PO DAILY 12/03/17 02/27/18 History [Vitamin D3] clopidogrel [Plavix] 75 mg PO DAILY 12/03/17 02/27/18 History lisinopril 40 mg PO DAILY 12/03/17 02/27/18 History rosuvastatin [Crestor] 40 mg PO DAILY 12/03/17 02/27/18 History Physical Exam Vital signs: Vital Signs 02/27/18 09:33 02/27/18 10:15 02/27/18 11:07 Temperature Pulse Rate 88 100 H 83 Respiratory Rate 16 15 17 Blood Pressure 175/105 H 175/94 H 175/96 H Pulse Oximetry 95 95 95 02/27/18 12:00 02/27/18 13:55 02/27/18 16:14 Temperature Pulse Rate 96 H 78 79 Respiratory Rate 16 Blood Pressure 156/95 H 136/79 Pulse Oximetry 95 98 02/27/18 20:00 02/28/18 00:00 02/28/18 04:00 Temperature 97.4 F L 97.0 F L 97.4 F L Pulse Rate 75 66 66 Respiratory Rate 18 18 18 Blood Pressure 156/96 H 120/73 113/74 Pulse Oximetry 96 94 L 96 02/28/18 07:37 Temperature 98.1 F Pulse Rate 73 Respiratory Rate 18 Blood Pressure 130/79 Pulse Oximetry 94 L Intake & Output 02/27/18 02/28/18 02/28/18 18:59 06:59 18:59 Intake Total 1000 / 1000 680 / 680 Output Total 2400 / 2400 Balance 1000 / 1000 -1720 / -1720 Weight 104.32 kg 104.3 kg Intake: IV 1000 / 1000 NS Inj 1,000 ML @ 1000 mls/hr 1000 / 1000 IV.SIG BOLUS [facility] Rx#:[id number] Oral 680 / 680 Output: Urine 2400 / 2400 Other: Date of Last Bowel Movement 02/27/18 02/27/18 Weight On Admission 104.32 kg Narrative: General: No apparent distress Cardiac: Regular rate and rhythm. Respiratory: Lungs clear to auscultate. GI: Abdomen nontender. Results 02/27/18 09:56 02/27/18 09:56 Cardiac Enzymes 02/27/18 02/27/18 02/27/18 Range/Units 09:56 13:40 16:00 AST 17 (15-37) U/L Troponin I Less than 0.02 L Less than 0.02 L Less than 0.02 L (0.02-0.05) ng/mL CBC 02/27/18 Range/Units 09:56 WBC 7.4 (4.0-11.0) th/mm3 RBC 5.41 (4.50-5.90) mil/mm3 Hgb 16.6 (13.0-17.0) gm/dL Hct 48.6 (39.0-51.0) % Plt Count 322 (150-450) th/mm3 Neut # (Auto) 4.2 (1.8-7.7) th/mm3 Lymph # (Auto) 2.5 (1.0-4.8) th/mm3 Glenn # (Auto) 0.5 (0.0-0.9) th/mm3 Eos # (Auto) 0.1 (0.0-0.4) th/mm3 Baso # (Auto) 0.1 (0.0-0.2) th/mm3 Comprehensive Metabolic Panel 02/27/18 Range/Units 09:56 Sodium 139 (136-145) meq/L Potassium 4.0 (3.5-5.1) meq/L Chloride 108 H (98-107) meq/L Carbon Dioxide 23.3 (21.0-32.0) meq/L BUN 14 (7-18) mg/dL Creatinine 0.95 (0.60-1.30) mg/dL Calcium 8.6 (8.5-10.1) mg/dL AST 17 (15-37) U/L ALT 26 (12-78) U/L Alkaline Phosphatase 72 (45-117) U/L Total Protein 7.9 (6.4-8.2) g/dL Albumin 4.2 (3.4-5.0) g/dL Intake and Output 02/27/18 02/28/18 02/28/18 22:59 06:59 14:59 Intake Total 680 / 680 Output Total 2400 / 2400 Balance -1720 / -1720 Intake: Oral 680 / 680 Output: Urine 2400 / 2400 Other: Date of Last Bowel Movement 02/27/18 Weight 104.32 kg 104.3 kg Weight On Admission 104.32 kg - Imaging and Cardiology Imaging: Impressions Chest X-Ray 02/27/18 09:47 CONCLUSION: Negative examination. Assessment and Plan - Plan Attempt will be made to stabilize the patient using nitrates but with additional medications if necessary. If he cannot be stabilized Dr. Gonzalez will be contacted for further instructions or consideration of admission. If he stabilizes he will be discharged for further follow-up on outpatient basis as scheduled. Patient denies chest discomfort. Dr. Feliz had requested the patient be discharged if he no longer has chest discomfort. Requested the atenolol be increased to 25 mg twice a day which has already been started. He should follow -up with Dr. Anitha Jones. Return to ED for interval issues. Also follow-up with his PCP at [facility].
[2018-02-28] MEDS: Famotidine 20 MG Tablet PO SCH (08:22)
[2018-02-28] MEDS: Atenolol 50 MG Tablet PO SCH (08:22)
[2018-02-28 08:27] VITALS: PULSE 78
[2018-02-28 08:45] VITALS: O2SAT 97
[2018-02-28] MEDS ORDERED: Atenolol 25 MG Tablet PO SCH (09:00)
[2018-02-28] MEDS ORDERED: Lisinopril 20 MG Tablet PO SCH (09:00)
== END 2018-02-28 09:40 | disposition home or self-care (01) ==
LOC: NEDA 09:07 → NEPC 09:07 → NEPFCDU 14:51
PROVIDERS: ADMIT Internal Medicine Interventional Cardiology; ATTEND Internal Medicine Interventional Cardiology